=== PATIENT | male | born 1950 | race Caucasian/White ===

== ENCOUNTER → 2018-03-14 09:57 | Outpatient (REF) | payer MEDICARE, OTHER, SELFPAY ==
[2018-03-14 16:48] LABS: Basophils # 0.1 K/mm3 (0-0.2); Basophils % 1.1 % (0.1-2.0); Eosinophils # 0.4 K/mm3 (0.0-0.4); Hematocrit 42.1 % (42.0-52.0); Hemoglobin 13.1 g/dL (14.1-18.0); Lymphocytes # 2.2 K/mm3 (0.7-4.5); Lymphocytes % 27.7 K/mm3 (10-50); Mean Corpuscular HGB Conc 31.2 g/dL (31.8-35.4); Mean Corpuscular Hemoglobin 29.1 pg (27.0-31.2); Mean Corpuscular Volume 93.2 fl (80-94); Mean Platelet Volume 7.9 fl (7.4-10.4); Monocytes # 0.5 K/mm3 (0.1-1.0); Monocytes % 6.9 % (1.7-9.3); Neutrophils # 4.7 K/mm3 (1.8-7.8); Neutrophils % 59.3 % (37.0-80.0); Platelet Count 330 K/mm3 (142-424); Red Blood Count 4.52 M/mm3 (4.60-6.20); Red Cell Distribution Width 13.2 % (11.5-17.5); White Blood Count 7.9 K/mm3 (4.8-10.8)
[2018-03-14 17:55] LABS: Alanine Aminotransferase 19 U/L (12-78); Albumin/Globulin Ratio 1.2 (1.1-1.8); Alkaline Phosphatase 79 U/L (46-116); Anion Gap 13.4 mEq/L (5-15); Aspartate Amino Transferase 15 U/L (15-37); Bilirubin,Total 0.4 mg/dL (0.2-1.0); Blood Urea Nitrogen 27 mg/dL (7-18); Calcium 9.1 mg/dL (8.5-10.1); Carbon Dioxide 28 mmol/L (21.0-32.0); Chloride 105 mmol/L (98-107); Chol/HDL Ratio 4.9 (1-3.5); Cholesterol 197 mg/dL (140-200); Estimated Glomerular Filt Rate 33 ml/min (>60); GFR (African American) 40 ML/MIN (>60); Globulin 3.4 gm/dl (1.3-3.2); Glucose 107 mg/dL (74-106); HDL Cholesterol 40 mg/dL (27-67); LDL Cholesterol 112 mg/dL (0-130); Potassium 5.4 mmoL/L (3.5-5.1); Sodium 141 mmol/L (136-145); T4 (Thyroxine) 7.7 ug/dl (4.7-13.3); Thyroid Stimulating Hormone 5.33 uIU/ml (0.358-3.740); Total Protein,Serum 7.4 gm/dL (6.4-8.2); Triglycerides 227 mg/dL (30-200); VLDL Cholesterol 45 mg/dL (0-40)
[2018-03-14 18:32] LABS: Hemoglobin A1C 6.3 % (0.0-7.0)
[2018-03-17 11:59] LABS: Microalbumin, Urine 7.6 ug/mL (Not Estab.); Vitamin D 25 Hydroxy 29.6 ng/mL (30.0-100.0)
== END ==
LOC: LAB 09:57
PROVIDERS: Visit Provider Nurse Practitioner Family
DX: E11.9 Type 2 diabetes mellitus without complications (principal)
CPT/HCPCS: 80053; 80061; 82043; 82652; 83036; 84436; 84443; 85025

== ENCOUNTER → 2018-09-01 13:45 | Outpatient (CLI) | payer MEDICARE, BC, SELFPAY ==
[2018-09-01 14:59] LABS: Alanine Aminotransferase 16 U/L (12-78); Albumin Level 3.6 gm/dL (3.4-5.0); Albumin/Globulin Ratio 0.9 (1.1-1.8); Alkaline Phosphatase 92 U/L (46-116); Anion Gap 18.8 mEq/L (5-15); Aspartate Amino Transferase 13 U/L (15-37); Bilirubin,Total 0.4 mg/dL (0.2-1.0); Blood Urea Nitrogen 41 mg/dL (7-18); Calcium 8.8 mg/dL (8.5-10.1); Carbon Dioxide 22 mmol/L (21.0-32.0); Chloride 107 mmol/L (98-107); Chol/HDL Ratio 3.9 (1-3.5); Cholesterol 156 mg/dL (140-200); Creatinine,Serum 2.14 mg/dL (0.70-1.30); Estimated Glomerular Filt Rate 31 ml/min (>60); GFR (African American) 37 ML/MIN (>60); Glucose 126 mg/dL (74-106); HDL Cholesterol 40 mg/dL (27-67); LDL Cholesterol 103 mg/dL (0-130); Potassium 4.8 mmoL/L (3.5-5.1); Sodium 143 mmol/L (136-145); Thyroid Stimulating Hormone 2.26 uIU/ml (0.358-3.740); Total Protein,Serum 7.6 gm/dL (6.4-8.2); Triglycerides 67 mg/dL (30-200); VLDL Cholesterol 13 mg/dL (0-40)
[2018-09-03 04:12] LABS: Creatinine, Urine 85.5 mg/dL (Not Estab.); Microalbumin, Urine 7.6 ug/mL (Not Estab.)
== END ==
PROVIDERS: Visit Provider Nurse Practitioner Family
DX: E11.9 Type 2 diabetes mellitus without complications (principal); E03.9 Hypothyroidism, unspecified
CPT/HCPCS: 80053; 80061; 82043; 82570; 83036; 84443

== ENCOUNTER → 2018-09-15 15:04 | Outpatient (CLI) | payer MEDICARE, BC, SELFPAY ==
[2018-09-15 17:01] LABS: Anion Gap 14.6 mEq/L (5-15); Blood Urea Nitrogen 27 mg/dL (7-18); Calcium 8.4 mg/dL (8.5-10.1); Carbon Dioxide 26 mmol/L (21.0-32.0); Chloride 106 mmol/L (98-107); Creatinine,Serum 1.82 mg/dL (0.70-1.30); Estimated Glomerular Filt Rate 37 ml/min (>60); GFR (African American) 45 ML/MIN (>60); Glucose 125 mg/dL (74-106); Potassium 4.6 mmoL/L (3.5-5.1); Sodium 142 mmol/L (136-145)
== END ==
PROVIDERS: Visit Provider Nurse Practitioner Family
DX: R79.89 Other specified abnormal findings of blood chemistry (principal)
CPT/HCPCS: 36415; 80048

== ENCOUNTER → 2018-09-21 08:14 | Outpatient (CLI) | payer MEDICARE, BC, SELFPAY ==
--- NOTE | 2018-09-21 09:00 | US_ITS ---
US kidney retroperitoneal comp HISTORY: ITS.REASON: elevated creatinine ORDERING PHYSICIAN: Aurea Raygoza PATIENT AGE: 68 years Comparison: None FINDINGS: The right kidney measures 10 x 5 x 6 cm. There is some mild cortical thinning. No hydronephrosis. An 8 mm cyst is present along the lower pole laterally. The left kidney is 11 x 6 x 7 cm. No hydronephrosis. There is a small parapelvic cyst at 9 mm. There is mild cortical thinning. IMPRESSION: 1. No hydronephrosis. 2. Mild bilateral renal cortical thinning with small bilateral renal cysts
== END ==
PROVIDERS: PCP Nurse Practitioner Family; Visit Provider Nurse Practitioner Family
DX: R79.89 Other specified abnormal findings of blood chemistry (principal)
CPT/HCPCS: 76770

== ENCOUNTER → 2018-10-16 09:25 | Outpatient (POV) | payer MEDICARE, BC, SELFPAY | PROVIDERS: Visit Provider Nurse Practitioner Acute Care | DX: Z00.00 Encounter for general adult medical examination without abnormal findings (principal) ==

== ENCOUNTER → 2019-03-23 14:02 | Outpatient (CLI) | payer MEDICARE, BC, SELFPAY ==
[2019-03-23 14:25] LABS: Anion Gap 15.5 mEq/L (5-15); Blood Urea Nitrogen 60 mg/dL (7-18); Calcium 8.3 mg/dL (8.5-10.1); Carbon Dioxide 20 mmol/L (21.0-32.0); Chloride 110 mmol/L (98-107); Creatinine,Serum 2.88 mg/dL (0.70-1.30); Estimated Glomerular Filt Rate 22 ml/min (>60); GFR (African American) 26 ML/MIN (>60); Glucose 107 mg/dL (74-106); Potassium 4.5 mmoL/L (3.5-5.1); Sodium 141 mmol/L (136-145)
[2019-03-23 14:44] LABS: Basophils # 0.1 K/mm3 (0-0.2); Basophils % 0.3 % (0.1-2.0); Eosinophils # 0.4 K/mm3 (0.0-0.4); Hematocrit 30.9 % (42.0-52.0); Hemoglobin 9.6 g/dL (14.1-18.0); Lymphocytes # 2.6 K/mm3 (0.7-4.5); Lymphocytes % 18.6 % (10-50); Mean Corpuscular HGB Conc 30.9 g/dL (31.8-35.4); Mean Corpuscular Hemoglobin 28.4 pg (27.0-31.2); Mean Corpuscular Volume 91.9 fl (80-94); Mean Platelet Volume 7.5 fl (7.4-10.4); Monocytes # 1.1 K/mm3 (0.1-1.0); Monocytes % 7.4 % (1.7-9.3); Neutrophils % 70.7 % (37.0-80.0); Platelet Count 341 K/mm3 (142-424); Red Blood Count 3.36 M/mm3 (4.60-6.20); White Blood Count 14.2 K/mm3 (4.8-10.8)
== END ==
PROVIDERS: PCP Emergency Medicine; Visit Provider Emergency Medicine
DX: K52.9 Noninfective gastroenteritis and colitis, unspecified (principal)
CPT/HCPCS: 80048; 85025; 85060

== ENCOUNTER → 2019-04-13 10:24 | Outpatient (CLI) | payer MEDICARE, BC, SELFPAY ==
[2019-04-13 13:20] LABS: Anion Gap 14.5 mEq/L (5-15); Blood Urea Nitrogen 26 mg/dL (7-18); Calcium 8.3 mg/dL (8.5-10.1); Carbon Dioxide 25 mmol/L (21.0-32.0); Chloride 110 mmol/L (98-107); Creatinine,Serum 2.02 mg/dL (0.70-1.30); Estimated Glomerular Filt Rate 33 ml/min (>60); GFR (African American) 40 ML/MIN (>60); Glucose 100 mg/dL (74-106); Potassium 4.5 mmoL/L (3.5-5.1); Sodium 145 mmol/L (136-145)
== END ==
PROVIDERS: Visit Provider Emergency Medicine
DX: R79.89 Other specified abnormal findings of blood chemistry (principal)
CPT/HCPCS: 36415; 80048

== ENCOUNTER 2020-08-30 03:52 | Emergency (ER) | payer MEDICARE, BC, SELFPAY ==
--- NOTE | 2020-08-30 04:01 | PC.NURSE ---
md at bedside. no tests ordered at this time.
[2020-08-30 04:02] VITALS: BP 172/90; PULSE 82; RESP 14; TEMP 36.8; O2SAT 96; BMI 27.3
--- NOTE | 2020-08-30 04:04 | HMH.EDGENADL ---
ED Disposition Clinical Impression: Strain of neck muscle Disposition: Home, Self-Care Condition on Discharge: Good Instructions: DI for Neck Pain Prescriptions: Methocarbamol [Robaxin 500mg Tab*] 500 mg PO TID PRN 5 Days #15 tab PRN Reason: Muscle Spasm Transmission Status: Pending to [facility] #[id number] Referrals: Paul Light MD [Primary Care Provider] - - Critical Care Critical Care Time: No Attestation: On , the high probability of a clinically significant, sudden or life threatening deterioration of the following system(s) required my full and direct attention, intervention and personal management. The time I documented below is in addition to time spent performing reported procedures but includes the following listed in this critical care notation. Medical Decision Making - Medical Records Medical records reviewed: Yes: I reviewed the patient's medical records. - Elian Inquiry Pt receiving controlled substance: No Orders (Tests/Meds): ED MEDICATIONS Generic Name Dose Route Start Last Admin Trade Name Freq PRN Reason Stop Dose Admin Methocarbamol 500 mg 08/30/20 09:00 Methocarbamol 500mg Tablet PO 09/29/20 08:59 BID [facility], [facility] Medical Decision Narrative: 70-year-old male presents with acute on chronic neck pain, denies trauma, no risk for infection. Giving robaxin per request. neurological exam normal. Plan to give muscle relaxer discharged home with return precautions and prescription for muscle relaxer per request and recommendation for follow-up with primary care physician General Adult HPI - General Chief complaint: Neck Pain/Injury Stated complaint: neck pain Time Seen by Provider: 08/30/20 04:00 Source of Information: Patient - History of Present Illness HPI narrative: 70-year-old male presents with chronic neck pain. He says he is having difficulty turning his head to the left and was having difficulty sleeping at night due to pain. He said he had similar pain last year and was given a muscle relaxer and it felt much better. Denies recent trauma, numbness weakness or tingling in arms or legs fever chills or any other concerns for trauma or infection Onset (ago): minute(s) Location: left Radiation: non-radiation Severity: mild Severity scale (1-10): 5 Quality: dull, constant Consistency: constant Exacerbating factors: movement - Related Data Home Medications Medication Instructions Recorded Confirmed Aspirin [Low Dose Aspirin EC] 81 mg PO DAILY 03/22/19 04/18/19 Blood Sugar Diagnostic [Blood 0 kit .ROUTE .MEDSUPPLY 03/22/19 04/18/19 Glucose Test] Blood-Glucose Meter [Contour Link] 0 kit .ROUTE .MEDSUPPLY 03/22/19 04/18/19 Ergocalciferol (Vitamin D2) 50,000 unit PO QWEEK 03/22/19 04/18/19 [Drisdol] Pantoprazole Sodium [Protonix 40mg 40 mg PO DAILY 03/22/19 04/18/19 tablet] furosemide 20 mg tablet 20 mg PO DAILY 03/22/19 04/18/19 lisinopril 2.5 mg tablet 2.5 mg PO DAILY 03/22/19 04/18/19 metformin 500 mg tablet 500 mg PO BID 03/22/19 04/18/19 Previous Rx's Medication Instructions Recorded sitagliptin 100 mg tablet 100 mg PO QDAY #90 tab 05/02/19 amlodipine 10 mg tablet 10 mg PO DAILY #90 tab 08/14/19 methocarbamoL [Methocarbamol 500mg 500 mg PO BID PRN #10 tab 09/18/19 Tablet] levothyroxine 25 mcg tablet 25 mcg PO DAILY #90 tab 08/24/20 lovastatin 10 mg tablet 10 mg PO DAILY #90 tab 08/24/20 Methocarbamol [Robaxin 500mg Tab*] 500 mg PO TID PRN 5 Days #15 tab 08/30/20 Allergies Allergy/AdvReac Type Severity Reaction Status Date / Time No Known Allergies Allergy Verified 09/18/19 20:35 [facility] History - Hepatitis A Screen Attestation statement:: This patient has been screened for Hepatitis A risk factors. Medical History: Reports:: Diabetes Mellitus Type 2, Hypertension Comment: cologuard was ordered Other Surgeries: Yes: Hernia Repair, Other Amputation: No Fractures: No Comment: Belly Button rupture repai
[2020-08-30 04:15] VITALS: BP 166/75; PULSE 76; RESP 15; TEMP 36.8; O2SAT 98
== END 2020-08-30 04:18 | disposition home or self-care (01) ==
PROVIDERS: Emergency Provider Emergency Medicine; PCP Emergency Medicine
DX: S16.1XXA Strain of muscle, fascia and tendon at neck level, initial encounter (principal); E11.9 Type 2 diabetes mellitus without complications; I10 Essential (primary) hypertension; Z79.899 Other long term (current) drug therapy
CPT/HCPCS: 99281

== ENCOUNTER 2022-01-28 18:42 | Emergency (ER) | payer MEDICARE, BC, SELFPAY ==
[2022-01-28 19:00] VITALS: BP 150/89; PULSE 91; RESP 19; TEMP 36.8; O2SAT 98; BMI 26.4
--- NOTE | 2022-01-28 19:15 | HMH.EDUTC ---
[facility] [place] Disposition Clinical Impression: Gout attack Qualifiers: Gout site: hand Gout etiology: unspecified cause Laterality: right Qualified Code(s): M10.9 - Gout, unspecified Disposition: Home, Self-Care Condition on Discharge: Good Instructions: Gout, DI for Gout Additional Instructions: Take medication as prescribed Follow up with your Family Doctor if no improvement or any worsening of symptoms Return if needed Straight to ER if any life threatening symptoms Prescriptions: methylPREDNISolone [Medrol 4mg tab] 4 mg PO DIRECTED #21 tab Transmission Status: Received by [facility] # Naproxen [Naproxen 500mg tab] 500 mg PO BID 5 Days #10 tab Transmission Status: Received by [facility] # Referrals: Paul Light MD [Primary Care Provider] - As needed Time of Disposition: 20:03 Medical Decision Making - Elian Inquiry Pt receiving controlled substance: No Elian was queried for this patient: No Vital Signs: 01/28/22 19:00 01/28/22 20:13 Temperature 98.2 F 98.2 F Temperature Source Oral Pulse Rate 91 H Pulse Rate [Right Brachial] 91 H Respiratory Rate 19 19 Blood Pressure 150/89 H Blood Pressure [Right Arm] 150/89 H Blood Pressure Mean [Right Arm] 109 Blood Pressure Source [Right Arm] Automatic Cuff Blood Pressure Position [Right Arm] Sitting 02 Sat by Pulse Oximetry 98 Oxygen Delivery Method Room Air - Lab Data Lab Results 01/28/22 19:00: Uric Acid 8.7 H Orders (Tests/Meds): ED MEDICATIONS Discontinued Medications Generic Name Dose Route Start Last Admin Trade Name Alejo PRN Reason Stop Dose Admin Ketorolac Tromethamine 30 mg 01/28/22 19:58 01/28/22 20:10 Ketorolac 60mg/2ml Vial IM 01/28/22 19:59 30 mg ONCE ONE Administration Methylprednisolone Sodium Succinate 125 mg 01/28/22 19:58 01/28/22 20:10 Methylprednisolone Sod Succ 125mg Vial IM 01/28/22 19:59 125 mg ONCE ONE Administration Medical Decision Narrative: Patient state that he no longer takes asprin daily and has been told he can take ibuprofen but hasnt taken anything today Medication discussed with pharmacy [facility] [place] HPI - General Stated complaint: R Alexander swollen (no accident Time Seen by Provider: 01/28/22 19:16 Mode of Arrival: Ambulatory Source of Information: Patient Limitations: No Limitations Description of Symptoms (Recalled from Triage Doc. by RN): PATIENT C/O RIGHT HAND SWELLING SINCE Tuesday HEENT Symptoms (Recalled from RN notes): No Resp Symptoms (Recalled from RN notes): No Skin Symptoms (Recalled from RN notes): No MS Symptoms (Recalled from RN notes): Yes Functional Status (Recalled from RN notes): WNL - History of Present Illness Provider Complaint: Patient states that he woke up Tuesday with his right hand red and swollen State that it feels like it did when he had gout States that he has not done anything to hurt it that he is aware of so tonight when it was still hurting and swollen - Related Data Home Medications Medication Instructions Recorded Confirmed Aspirin [Low Dose Aspirin EC] 81 mg PO DAILY 03/22/19 04/18/19 Blood-Glucose Meter [Contour Link] 0 kit .ROUTE .MEDSUPPLY 03/22/19 04/18/19 Ergocalciferol (Vitamin D2) 50,000 unit PO QWEEK 03/22/19 04/18/19 [Drisdol] Pantoprazole Sodium [Protonix 40mg 40 mg PO DAILY 03/22/19 04/18/19 tablet] furosemide 20 mg tablet 20 mg PO DAILY 03/22/19 04/18/19 lisinopril 2.5 mg tablet 2.5 mg PO DAILY 03/22/19 04/18/19 metformin 500 mg tablet 500 mg PO BID 03/22/19 04/18/19 Previous Rx's Medication Instructions Recorded sitagliptin 100 mg tablet 100 mg PO QDAY #90 tab 05/02/19 methocarbamoL [Methocarbamol 500mg 500 mg PO BID PRN #10 tab 09/18/19 Tablet] Methocarbamol [Robaxin 500mg Tab*] 500 mg PO TID PRN 5 Days #15 tab 08/30/20 blood sugar diagnostic 1 strip MISCELLANE BID #100 each 10/31/20 levothyroxine 25 mcg tablet 25 mcg PO DAILY #90 tab
[2022-01-28 19:23] LABS: Uric Acid 8.7 mg/dl (3.5-8.5)
[2022-01-28 20:13] VITALS: BP 150/89; PULSE 91; RESP 19; TEMP 36.8; O2SAT 98
== END 2022-01-28 20:21 | disposition home or self-care (01) ==
PROVIDERS: Emergency Provider Nurse Practitioner; PCP Emergency Medicine
DX: M10.9 Gout, unspecified (principal)
CPT/HCPCS: 84550; 96372; 99212; G0463

== ENCOUNTER → 2022-02-03 14:09 | Outpatient (CLI) | payer MEDICARE, BC, SELFPAY | PROVIDERS: PCP Nurse Practitioner Family; Visit Provider Nurse Practitioner Family | DX: E07.9 Disorder of thyroid, unspecified (principal); E11.9 Type 2 diabetes mellitus without complications; E78.5 Hyperlipidemia, unspecified; I10 Essential (primary) hypertension; Z79.84 Long term (current) use of oral hypoglycemic drugs | CPT/HCPCS: 82043 ==

== ENCOUNTER → 2022-02-05 15:12 | Outpatient (CLI) | payer MEDICARE, BC, SELFPAY ==
[2022-02-05 16:37] LABS: Basophils # 0.2 K/mm3 (0-0.2); Basophils % 1.4 % (0.1-2.0); Eosinophils # 0.4 K/mm3 (0.0-0.4); Hematocrit 42.4 % (42.0-52.0); Hemoglobin 14.2 g/dL (14.1-18.0); Lymphocytes # 2.4 K/mm3 (0.7-4.5); Lymphocytes % 17.4 % (10-50); Mean Corpuscular HGB Conc 33.4 g/dL (31.8-35.4); Mean Corpuscular Hemoglobin 31.2 pg (27.0-31.2); Mean Corpuscular Volume 93.3 fl (80-94); Mean Platelet Volume 7.7 fl (7.4-10.4); Monocytes # 0.8 K/mm3 (0.1-1.0); Neutrophils # 9.8 K/mm3 (1.8-7.8); Neutrophils % 72.3 % (37.0-80.0); Platelet Count 335 K/mm3 (142-424); Red Blood Count 4.55 M/mm3 (4.60-6.20); Red Cell Distribution Width 13.9 % (11.5-17.5); White Blood Count 13.6 K/mm3 (4.8-10.8)
[2022-02-05 16:50] LABS: Alanine Aminotransferase 29 U/L (12-78); Albumin Level 3.6 g/dl (3.5-5.0); Albumin/Globulin Ratio 1.3 (1.1-1.8); Alkaline Phosphatase 103 U/L (38-126); Anion Gap 13.2 mEq/L (5-15); Aspartate Amino Transferase 33 U/L (17-59); Bilirubin,Total 0.2 mg/dl (0.2-1.3); Blood Urea Nitrogen 33 mg/dl (9-20); Carbon Dioxide 23 mmol/L (22.0-30.0); Chloride 107 mmol/L (98-107); Chol/HDL Ratio 4.4 (1-3.5); Cholesterol 159 mg/dl (140-200); Estimated Glomerular Filt Rate 46 ml/min (>60); GFR (African American) 56 ML/MIN (>60); Globulin 2.7 g/dL (1.3-3.2); Glucose 193 mg/dl (74-100); HDL Cholesterol 36 mg/dl (40-60); Potassium 4.2 mmoL/L (3.5-5.1); Sodium 139 mmol/L (136-145); Total Protein,Serum 6.3 g/dl (6.3-8.2); Triglycerides 321 mg/dl (30-150); VLDL Cholesterol 64 mg/dL (0-40)
[2022-02-05 17:01] LABS: Direct LDL Cholesterol 63.66 mg/dL (100-129)
[2022-02-05 17:04] LABS: Free T4 (Free Thyroxine) 1.06 ng/dl (0.78-2.19)
[2022-02-05 17:05] LABS: 25-OH Vitamin D, Total 34.7 ng/mL (30-100)
[2022-02-05 17:08] LABS: Hemoglobin A1C 6.3 % (4.0-6.0)
[2022-02-05 17:20] LABS: Thyroid Stimulating Hormone 2.36 uIU/mL (0.465-4.68)
== END ==
PROVIDERS: PCP Emergency Medicine; Visit Provider Family Medicine
DX: E11.9 Type 2 diabetes mellitus without complications (principal); R10.9 Unspecified abdominal pain; E55.9 Vitamin D deficiency, unspecified; Z79.84 Long term (current) use of oral hypoglycemic drugs
CPT/HCPCS: 36415; 80053; 80061; 82306; 83036; 84439; 84443; 85025

== ENCOUNTER 2022-02-14 19:50 | Emergency (ER) | payer MEDICARE, BC, SELFPAY ==
[2022-02-14 20:08] VITALS: BP 153/70; PULSE 81; RESP 18; TEMP 37.4; O2SAT 96; BMI 27.3
--- NOTE | 2022-02-14 20:12 | HMH.EDUTC ---
[facility] [place] Disposition Clinical Impression: Right hand pain, History of gout Disposition: Home, Self-Care Condition on Discharge: Good Instructions: Gout, DI for Gout, DI for Hand Pain Additional Instructions: Rest the extremity, Elevate the extremity as tolerated while you are resting. Take the steroids as directed for you hand pain. Don't start the oral steroids (medrol dose pack) until tomorrow. Follow up with your regular doctor. You may need to medication to treat gout in a more terminal superintendent way, but, since you may have a little decreased kidney function, you should see your doctor to discuss this. GO TO THE ER FOR ANY WORSENING SYMPTOMS Prescriptions: methylPREDNISolone [Medrol] 4 mg PO DIRECTED 6 Days #21 packet Transmission Status: Received by [facility] #[id number] Referrals: Paul Light MD [Primary Care Provider] - Time of Disposition: 20:45 Medical Decision Making - Medical Records Medical records reviewed: No: I reviewed the patient's medical records. - Elian Inquiry Pt receiving controlled substance: No Vital Signs: 02/14/22 20:08 02/14/22 20:47 Temperature 99.3 F 99.3 F Temperature Source Oral Pulse Rate 81 Pulse Rate [Left Radial] 81 Respiratory Rate 18 18 Blood Pressure 153/70 H Blood Pressure [Right Arm] 153/70 H Blood Pressure Mean [Right Arm] 97 02 Sat by Pulse Oximetry 96 Orders (Tests/Meds): ED MEDICATIONS Discontinued Medications Generic Name Dose Route Start Last Admin Trade Name Cedricq PRN Reason Stop Dose Admin Methylprednisolone Sodium Succinate 125 mg 02/14/22 20:24 02/14/22 20:38 Methylprednisolone Sod Succ 125mg Vial IM 02/14/22 20:25 125 mg ONCE ONE Administration [facility] [place] HPI - General Stated complaint: pain R hand Time Seen by Provider: 02/14/22 20:12 Description of Symptoms (Recalled from Triage Doc. by RN): patient comes in with complaints of right hand gout flare up. HEENT Symptoms (Recalled from RN notes): No Resp Symptoms (Recalled from RN notes): No Skin Symptoms (Recalled from RN notes): No MS Symptoms (Recalled from RN notes): Yes Functional Status (Recalled from RN notes): wnl - History of Present Illness Provider Complaint: He is here with complaints of right hand pain with no injury. He has a history of gout that has caused pain like this in the same place in the past. - Related Data Home Medications Medication Instructions Recorded Confirmed Aspirin [Low Dose Aspirin EC] 81 mg PO DAILY 03/22/19 02/03/22 Ergocalciferol (Vitamin D2) 50,000 unit PO QWEEK 03/22/19 02/03/22 [Drisdol] Pantoprazole Sodium [Protonix 40mg 40 mg PO DAILY 03/22/19 02/03/22 tablet] furosemide 20 mg tablet 20 mg PO DAILY 03/22/19 02/03/22 lisinopril 2.5 mg tablet 2.5 mg PO DAILY 03/22/19 02/03/22 metformin 500 mg tablet 500 mg PO BID 03/22/19 02/03/22 Previous Rx's Medication Instructions Recorded sitagliptin 100 mg tablet 100 mg PO QDAY #90 tab 05/02/19 methocarbamoL [Methocarbamol 500mg 500 mg PO BID PRN #10 tab 09/18/19 Tablet] Methocarbamol [Robaxin 500mg Tab*] 500 mg PO TID PRN 5 Days #15 tab 08/30/20 levothyroxine 25 mcg tablet 25 mcg PO DAILY #90 tab 08/19/21 lovastatin 10 mg tablet 10 mg PO DAILY #30 tab 01/20/22 amlodipine 10 mg tablet See Rx Instructions .ROUTE 01/27/22 .COMPLEX #90 tab Naproxen [Naproxen 500mg tab] 500 mg PO BID 5 Days #10 tab 01/28/22 methylPREDNISolone [Medrol 4mg 4 mg PO DIRECTED #21 tab 01/28/22 tab] blood sugar diagnostic 1 strip MISCELLANE BID #100 each 02/05/22 blood-glucose meter 0 kit .ROUTE .MEDSUPPLY #1 each 02/05/22 lancets 30 gauge See Rx Instructions [facility] .MEDSUPPLY 02/05/22 #200 each methylPREDNISolone [Medrol] 4 mg PO DIRECTED 6 Days #21 02/14/22 packet Allergies Allergy/AdvReac Type Severity Reaction Status Date / Time No Known Allergies Allergy Verified 02/03/22 08:10 - Worker's Comp Is this a Worker's Comp case?: No H
[2022-02-14 20:47] VITALS: BP 153/70; PULSE 81; RESP 18; TEMP 37.4
== END 2022-02-14 20:52 | disposition home or self-care (01) ==
PROVIDERS: Emergency Provider Nurse Practitioner Family; PCP Emergency Medicine
DX: M79.641 Pain in right hand (principal); E11.9 Type 2 diabetes mellitus without complications; Z79.84 Long term (current) use of oral hypoglycemic drugs; I10 Essential (primary) hypertension
CPT/HCPCS: 96372; 99212; G0463

== ENCOUNTER 2022-03-17 17:32 | Emergency (ER) | payer MEDICARE, BC, SELFPAY ==
[2022-03-17 17:34] VITALS: BP 143/83; PULSE 72; RESP 18; TEMP 36.8; O2SAT 98; BMI 27.3
--- NOTE | 2022-03-17 18:02 | PC.NURSE ---
ED MD AT BEDSIDE TO TREAT PT FOR EYE ISSUE
--- NOTE | 2022-03-17 18:46 | HMH.EDEYEP ---
ED Disposition Clinical Impression: Corneal abrasion Qualifiers: Encounter type: initial encounter Laterality: right Qualified Code(s): S05.01XA - Injury of conjunctiva and corneal abrasion without foreign body, right eye, initial encounter Pterygium eye Qualifiers: Laterality: right Qualified Code(s): H11.001 - Unspecified pterygium of right eye Disposition: Home, Self-Care Condition on Discharge: Good Instructions: DI for Eye Pain Referrals: Paul Light MD [Primary Care Provider] - - Critical Care Critical Care Time: No Attestation: On 03/17/22, the high probability of a clinically significant, sudden or life threatening deterioration of the following system(s) required my full and direct attention, intervention and personal management. The time I documented below is in addition to time spent performing reported procedures but includes the following listed in this critical care notation. Medical Decision Making - Medical Records Medical records reviewed: Yes: I reviewed the patient's medical records. - Elian Inquiry Pt receiving controlled substance: No Vital Signs: 03/17/22 17:34 Temperature 98.3 F Temperature Source Oral Pulse Rate [Left Radial] 72 Respiratory Rate 18 Blood Pressure [Right Arm] 143/83 H Blood Pressure Mean [Right Arm] 103 Blood Pressure Source [Right Arm] Automatic Cuff Blood Pressure Position [Right Arm] Sitting 02 Sat by Pulse Oximetry 98 Oxygen Delivery Method Room Air Orders (Tests/Meds): ED MEDICATIONS Discontinued Medications Generic Name Dose Route Start Last Admin Trade Name Freq PRN Reason Stop Dose Admin Erythromycin 0.5 gm 03/17/22 18:40 03/17/22 18:45 Erythromycin Base 1 Gm Oint...G. OP 03/17/22 18:41 0.5 gm ONCE ONE Administration Fluorescein Sodium 1 mg 03/17/22 18:40 03/17/22 18:46 Fluorescein Sodium 1mg Strip OP 03/17/22 18:41 1 mg ONCE ONE Administration Tetracaine HCl 1 ml 03/17/22 18:40 03/17/22 18:46 Tetracaine 0.5% Opth Tamera 15ml OP 03/17/22 18:41 0.5 ml ONCE ONE Administration Medical Decision Narrative: 71-year-old male presented to the emergency department with some right pain. We did observe under direct visualization and fluorescein. Patient with small corneal abrasion as well as pterygiums. Patient was placed on antibiotic ointment. Needs to follow-up with ophthalmology in 24 hours. Given strict return precautions. Verbalized understanding. Eye Problem HPI - General Chief complaint: Eye Problems Stated complaint: AO/@1700 Left eye injury Time Seen by Provider: 03/17/22 17:40 Mode of Arrival: Ambulatory Limitations: No Limitations Description of Symptoms (Recalled from ER Triage Doc. by RN): c/o right eye pain after something going in it while weeding prior to arrival - History of Present Illness HPI Narrative: 71-year-old male presented with some right eye pain after something got into it while he was weed eating. Patient states that some grass flew up and hit him in the eye. Had some instant pain in his right eye. Is not having difficulty seeing just complaining of pain. Worse with light. Fell excellently was stuck in there. Tetanus is up-to-date. Denies any other injuries. No headache or focal weakness. Fevers or chills no chest pain or shortness of breath. No abdominal pain or vomiting. - Related Data Home Medications Medication Instructions Recorded Confirmed Aspirin [Low Dose Aspirin EC] 81 mg PO DAILY 03/22/19 02/03/22 Ergocalciferol (Vitamin D2) 50,000 unit PO QWEEK 03/22/19 02/03/22 [Drisdol] Pantoprazole Sodium [Protonix 40mg 40 mg PO DAILY 03/22/19 02/03/22 tablet] furosemide 20 mg tablet 20 mg PO DAILY 03/22/19 02/03/22 lisinopril 2.5 mg tablet 2.5 mg PO DAILY 03/22/19 02/03/22 metformin 500 mg tablet 500 mg PO BID 03/22/19 02/03/22 Previous Rx's Medication Instructions Recorded sitagliptin 100 mg tablet 100 mg PO QDAY #90 tab 05/02/19 me
[2022-03-17 18:55] VITALS: BP 135/71; PULSE 72; RESP 18; TEMP 36.7; O2SAT 96
== END 2022-03-17 18:59 | disposition home or self-care (01) ==
PROVIDERS: Emergency Provider Emergency Medicine; PCP Emergency Medicine
DX: S05.01XA Injury of conjunctiva and corneal abrasion without foreign body, right eye, initial encounter (principal); H11.001 Unspecified pterygium of right eye; Y93.H2 Activity, gardening and landscaping; Z79.82 Long term (current) use of aspirin; Z79.899 Other long term (current) drug therapy; Z79.84 Long term (current) use of oral hypoglycemic drugs; E11.9 Type 2 diabetes mellitus without complications; I10 Essential (primary) hypertension

== ENCOUNTER 2022-03-17 20:45 | Emergency (ER) | payer MEDICARE, BC, SELFPAY ==
[2022-03-17 20:46] VITALS: BP 146/77; PULSE 69; RESP 18; TEMP 37.1; O2SAT 98; BMI 27.3
[2022-03-17 21:30] VITALS: BP 119/44; PULSE 64; O2SAT 98
[2022-03-17 22:30] VITALS: BP 128/55; PULSE 64; O2SAT 98
--- NOTE | 2022-03-17 23:05 | PC.NURSE ---
Pt moved to room 2 so eye exam could be performed
--- NOTE | 2022-03-17 23:49 | PC.NURSE ---
at performing eye exam
--- NOTE | 2022-03-17 23:55 | HMH.EDEYEP ---
ED Disposition Clinical Impression: Corneal abrasion Qualifiers: Encounter type: subsequent encounter Laterality: right Qualified Code(s): S05.01XD - Injury of conjunctiva and corneal abrasion without foreign body, right eye, subsequent encounter Disposition: Home, Self-Care Condition on Discharge: Good Instructions: DI for Corneal Abrasion Additional Instructions: see eye center this am Referrals: Paul Light MD [Primary Care Provider] - - Critical Care Critical Care Time: No Attestation: On 03/17/22, the high probability of a clinically significant, sudden or life threatening deterioration of the following system(s) required my full and direct attention, intervention and personal management. The time I documented below is in addition to time spent performing reported procedures but includes the following listed in this critical care notation. Medical Decision Making - Medical Records Medical records reviewed: Yes: I reviewed the patient's medical records. - Elian Inquiry Pt receiving controlled substance: No Vital Signs: 03/17/22 20:46 03/17/22 21:30 03/17/22 22:30 Temperature 98.7 F Temperature Source Oral Pulse Rate 64 64 Pulse Rate [Right] 69 Respiratory Rate 18 Blood Pressure 119/44 L 128/55 L Blood Pressure [Right Arm] 146/77 H Blood Pressure Mean [Right Arm] 100 02 Sat by Pulse Oximetry 98 98 98 Oxygen Delivery Method Room Air Room Air Orders (Tests/Meds): ED MEDICATIONS Discontinued Medications Generic Name Dose Route Start Last Admin Trade Name Freq PRN Reason Stop Dose Admin Tetanus/Diphtheria Toxoids 0.5 ml 03/17/22 23:55 03/18/22 00:24 Tetanus-Diphth Toxoid, Adult 0.5ml Syr IM 03/17/22 23:56 0.5 ml .ONCE ONE Administration - CT Data CT Scan: Other (orbit) Time Received: 01:[address] Reviewed: Yes: I have viewed the radiologist's interpretation Preliminary Findings: No Fracture Seen (no fb ) Medical Decision Narrative: see eye center this am Eye Problem HPI - General Chief complaint: Eye Problems Stated complaint: left eye inj Time Seen by Provider: 03/17/22 23:55 Mode of Arrival: Ambulatory Source of Information: Patient, Relative, Medical Record Limitations: No Limitations Description of Symptoms (Recalled from ER Triage Doc. by RN): pt c/o lt eye pain after weedeating and something flew up and hit eye. pt was seen in er for same problem today. - History of Present Illness HPI Narrative: persistent rt eye pain - seen in ed with abrasion - MD chief complaint: eye pain Onset (ago): hour(s) Location: right eye Eye Symptoms: foreign body sensation, photophobia Place: home Mechanism: direct trauma Severity: moderate Treatments Prior to Arrival: other (ontiment ) - Related Data Patient tetanus UTD: No Home Medications Medication Instructions Recorded Confirmed Aspirin [Low Dose Aspirin EC] 81 mg PO DAILY 03/22/19 02/03/22 Ergocalciferol (Vitamin D2) 50,000 unit PO QWEEK 03/22/19 02/03/22 [Drisdol] Pantoprazole Sodium [Protonix 40mg 40 mg PO DAILY 03/22/19 02/03/22 tablet] furosemide 20 mg tablet 20 mg PO DAILY 03/22/19 02/03/22 lisinopril 2.5 mg tablet 2.5 mg PO DAILY 03/22/19 02/03/22 metformin 500 mg tablet 500 mg PO BID 03/22/19 02/03/22 Previous Rx's Medication Instructions Recorded sitagliptin 100 mg tablet 100 mg PO QDAY #90 tab 05/02/19 methocarbamoL [Methocarbamol 500mg 500 mg PO BID PRN #10 tab 09/18/19 Tablet] Methocarbamol [Robaxin 500mg Tab*] 500 mg PO TID PRN 5 Days #15 tab 08/30/20 levothyroxine 25 mcg tablet 25 mcg PO DAILY #90 tab 08/19/21 amlodipine 10 mg tablet See Rx Instructions .ROUTE 01/27/22 .COMPLEX #90 tab Naproxen [Naproxen 500mg tab] 500 mg PO BID 5 Days #10 tab 01/28/22 methylPREDNISolone [Medrol 4mg 4 mg PO DIRECTED #21 tab 01/28/22 tab] blood sugar diagnostic 1 strip MISCELLANE BID #100 each 02/05/22 blood-glucose meter 0 kit .ROUTE .MEDSUPPLY #1 ea
--- NOTE | 2022-03-18 | CT_ITS ---
PROCEDURE INFORMATION: Exam: CT Orbits Without Contrast Exam date and time: 03/17/2022 11:59 PM Age: 71 years old Clinical indication: Injury or trauma; Other: Object hit eye; Injury details: [place] object hit right eye while weedeating, pain in right eye with redness; Additional info: F/o TECHNIQUE: Imaging protocol: Computed tomography of the orbits without contrast. Radiation optimization: All CT scans at this facility use at least one of these dose optimization techniques: automated exposure control; mA and/or kV adjustment per patient size (includes targeted exams where dose is matched to clinical indication); or iterative reconstruction. COMPARISON: No relevant prior studies available. FINDINGS: Paranasal sinuses: Normal. No air-fluid levels. Orbital cavities: No evidence of intra orbital foreign body. No evidence edema or soft tissue gas. Dental: Impacted right maxillary molar. Bones/joints: No acute fracture. Soft tissues: No significant facial soft tissue swelling. IMPRESSION: Normal appearance of the orbits. No evidence of foreign body, fracture, or visible soft tissue injury.
--- NOTE | 2022-03-18 00:36 | PC.NURSE ---
Patient is currently sitting on the side of his bed. Patient was given tetanus injection. Pt tolerated injection well. Is alert oriented and stable.
[2022-03-18 01:21] VITALS: BP 128/55; PULSE 64; RESP 18; TEMP 36.8; O2SAT 98
== END 2022-03-18 01:23 | disposition home or self-care (01) ==
PROVIDERS: Emergency Provider Emergency Medicine; PCP Emergency Medicine
DX: S05.01XD Injury of conjunctiva and corneal abrasion without foreign body, right eye, subsequent encounter (principal); Y93.H2 Activity, gardening and landscaping; Z79.82 Long term (current) use of aspirin; Z79.899 Other long term (current) drug therapy; Z23 Encounter for immunization; Z79.84 Long term (current) use of oral hypoglycemic drugs; E11.9 Type 2 diabetes mellitus without complications; I10 Essential (primary) hypertension
CPT/HCPCS: 70480; 90714; 99283; 99284

== ENCOUNTER → 2022-04-26 07:23 | Outpatient (CLI) | payer MEDICARE, BC, SELFPAY ==
[2022-04-26 07:30] LABS: Microscopic, Urine URINE MICROSCOPIC (MICROSCOPIC)
[2022-04-26 07:42] LABS: Appearance,Urine CLEAR (Clear); Basophils # 0.1 K/mm3 (0-0.2); Basophils % 1.8 % (0.1-2.0); Bilirubin,Urine Negative (Negative); Blood, Urine Negative (Negative); Color,Urine YELLOW (Yellow); Eosinophils # 0.4 K/mm3 (0.0-0.4); Eosinophils % 5.2 % (0.1-12.0); Glucose,Urine (UA) Negative (Negative); Hematocrit 43.5 % (42.0-52.0); Hemoglobin 13.3 g/dL (14.1-18.0); Ketones,Urine Negative (Negative); Leukocyte Esterase,Urine Negative (Negative); Lymphocytes # 3.2 K/mm3 (0.7-4.5); Lymphocytes % 40.4 % (10-50); Mean Corpuscular HGB Conc 30.6 g/dL (31.8-35.4); Mean Corpuscular Hemoglobin 29.2 pg (27.0-31.2); Mean Corpuscular Volume 95.5 fl (80-94); Mean Platelet Volume 7.4 fl (7.4-10.4); Monocytes # 0.5 K/mm3 (0.1-1.0); Monocytes % 6.7 % (1.7-9.3); Neutrophils # 3.6 K/mm3 (1.8-7.8); Neutrophils % 45.9 % (37.0-80.0); Nitrate,Urine Negative (Negative); Platelet Count 338 K/mm3 (142-424); Protein,Urine Negative (Negative); Red Blood Count 4.56 M/mm3 (4.60-6.20); Red Cell Distribution Width 13.6 % (11.5-17.5); Urobilinogen,Urine 0.2 EU/dl (0.2); White Blood Count 7.8 K/mm3 (4.8-10.8)
[2022-04-26 07:54] LABS: Bacteria,Urine Trace /lpf; RBC,Urine Occasional #/hpf (0-3); Squamous Epithelial Cell,Urine Occasional #/hpf (0-5); WBC,Urine Occasional #/hpf (0-3)
[2022-04-26 08:06] LABS: Creatinine,Urine Random 81 mg/dL (Not Estab.); Microalbumin/Creatinine Ratio 52.5
[2022-04-26 08:32] LABS: Albumin Level 4.2 g/dl (3.5-5.0); Anion Gap 13.7 mEq/L (5-15); Blood Urea Nitrogen 20 mg/dl (9-20); Calcium 8.9 mg/dl (8.4-10.2); Carbon Dioxide 23 mmol/L (22.0-30.0); Chloride 109 mmol/L (98-107); Estimated Glomerular Filt Rate 46 ml/min (>60); GFR (African American) 56 ML/MIN (>60); Glucose 119 mg/dl (74-100); Phosphorous 3.6 mg/dl (2.5-4.5); Potassium 4.7 mmoL/L (3.5-5.1); Sodium 141 mmol/L (136-145)
[2022-04-26 08:44] LABS: Intact Parathyroid Hormone 217.1 pg/mL (7.5-53.5)
[2022-04-26 08:48] LABS: 25-OH Vitamin D, Total 54.2 ng/mL (30-100)
== END ==
PROVIDERS: PCP Emergency Medicine; Visit Provider Internal Medicine Nephrology
DX: N18.31 Chronic kidney disease, stage 3a (principal); E55.9 Vitamin D deficiency, unspecified; R80.9 Proteinuria, unspecified
CPT/HCPCS: 36415; 80069; 81001; 82043; 82306; 82570; 83970; 84155; 85025

== ENCOUNTER → 2022-04-29 13:31 | Outpatient (POV) | payer MEDICARE, BC, SELFPAY | PROVIDERS: Visit Provider Internal Medicine Nephrology | DX: Z00.00 Encounter for general adult medical examination without abnormal findings (principal) ==

== ENCOUNTER 2022-10-18 08:42 | Emergency (ER) | payer MEDICARE, BC, SELFPAY ==
[2022-10-18 08:45] VITALS: BP 144/83; PULSE 81; RESP 20; TEMP 36.9; O2SAT 97; BMI 28.1
[2022-10-18 09:05] LABS: UTC Strep Screen (Rapid) Negative (Negative)
--- NOTE | 2022-10-18 09:07 | EXP.UTC ---
Discharge Plan Disposition Patient Disposition: Home, Self-Care Condition: Good Prescriptions Prescriptions: New benzonatate [benzonatate] 100 mg capsule 100 mg PO TIDP PRN (Reason: Cough) Qty: 30 0RF methylprednisolone 4 mg Tablets,Dose Pack 4 mg PO DIRECTED Qty: 21 0RF amoxicillin-pot clavulanate 875-125 mg Tablet 1 tab PO Q12H Qty: 20 0RF No Action Januvia 100 mg tablet 100 mg PO QDAY Qty: 90 0RF amlodipine 10 mg tablet See Rx Instructions .ROUTE .COMPLEX Qty: 90 3RF Dose Instruction: TAKE 1 TABLET BY MOUTH DAILY FOR BLOOD PRESSURE Rx Instructions: TAKE 1 TABLET BY MOUTH DAILY FOR BLOOD PRESSURE (DME) blood sugar diagnostic Strip 1 strip MISCELLANE BID Qty: 100 4RF Rx Instructions: 1 strip miscellaneous (DME) blood-glucose meter Kit 0 kit .Route .MEDSUPPLY Qty: 1 0RF Rx Instructions: As directed (DME) lancets [Droplet Lancets] 30 gauge misc See Rx Instructions .MEDSUPPLY Qty: 200 4RF Rx Instructions: As directed lovastatin 10 mg tablet 10 mg PO DAILY Qty: 90 3RF lisinopril 2.5 mg tablet 2.5 mg PO DAILY Qty: 90 3RF diclofenac sodium [Voltaren Arthritis Pain] 1 % gel 2 g TP QID Qty: 100 2RF Rx Instructions: apply to single elbow, wrist or hand; for hand includes palm/fingers/back of hand levothyroxine 25 mcg tablet See Rx Instructions .ROUTE .COMPLEX Qty: 90 0RF Dose Instruction: TAKE 1 TABLET BY MOUTH DAILY FOR THYROID Rx Instructions: TAKE 1 TABLET BY MOUTH DAILY FOR THYROID metformin 500 MG tablet 500 mg PO BID Hold Instructions: Doctor's Order Rx Instructions: take 2 tablets in the morning and 1 tablet in the evening aspirin 81 MG tablet,delayed release (DR/EC) 81 mg PO DAILY pantoprazole 40 MG tablet,delayed release (DR/EC) 40 mg PO DAILY furosemide 20 MG tablet 20 mg PO DAILY Hold Instructions: Doctor's Order ergocalciferol (vitamin D2) 50,000 UNIT capsule 50,000 unit PO QWEEK lisinopril 2.5 MG tablet 2.5 mg PO DAILY Hold Instructions: Doctor's Order methocarbamol 500 MG tablet 500 mg PO TID PRN (Reason: Muscle Spasm) 5 Days Qty: 15 0RF methylprednisolone 4 MG tablets,dose pack 4 mg PO DIRECTED 6 Days Qty: 21 0RF methocarbamol 500 MG tablet 500 mg PO BID PRN (Reason: Muscle Spasm) Qty: 10 0RF methylprednisolone 4 MG tablet 4 mg PO DIRECTED Qty: 21 0RF Rx Instructions: Take as directed on package instructions naproxen 500 MG tablet 500 mg PO BID 5 Days Qty: 10 0RF Referrals Follow up/Referrals: Paul Light MD [Primary Care Provider] - See instructions Activity Restrictions/Add. Instructions Additional Instructions/Restrictions: Drink plenty of fluids. Take tylenol or ibuprofen for pain or fever. Take the medications as directed. Follow up with your regular doctor. GO TO THE ER FOR ANY WORSENING SYMPTOMS Clinical Impressions Clinical Impression: Sinusitis, Pharyngitis Instructions Patient Instructions: Sinusitis, DI for Sinusitis Discharge ED Provider: Bin Garcia [facility] General Stated complaint: sore throat,runny nose,drainage Mode of Arrival: Ambulatory Source of Information: Patient Limitations: No Limitations Time Seen by Provider: 10/18/22 09:07 Description of Symptoms (Recalled from Triage Doc. by RN): PATIENT C/O RUNNY NOSE, SORE THROAT AND SINUS DRAINAGE SINCE LAST TUESDAY HEENT Symptoms (Recalled from RN notes): Yes Resp Symptoms (Recalled from RN notes): No Skin Symptoms (Recalled from RN notes): No MS Symptoms (Recalled from RN notes): No Functional Status (Recalled from RN notes): WNL History of Present Illness Provider Complaint: He states that for the past 3 days he has had a sore throat, sinus congestion and a cough. Related Data Home Medications Medication Instructions Recorded Confirmed aspirin 81 mg tablet,delayed
[2022-10-18 09:18] VITALS: BP 144/83; PULSE 81; RESP 20; TEMP 36.9; O2SAT 97
== END 2022-10-18 09:30 | disposition home or self-care (01) ==
PROVIDERS: Emergency Provider Nurse Practitioner Family; PCP Emergency Medicine
DX: J32.9 Chronic sinusitis, unspecified (principal); J02.9 Acute pharyngitis, unspecified
CPT/HCPCS: 87880; 99212; 99213; G0463

== ENCOUNTER → 2022-11-02 08:58 | Outpatient (CLI) | payer MEDICARE, BC, SELFPAY ==
[2022-11-02 09:05] LABS: Microscopic, Urine URINE MICROSCOPIC (MICROSCOPIC)
[2022-11-02 09:30] LABS: Hematocrit 42.8 % (42.0-52.0); Hemoglobin 14.2 g/dL (14.1-18.0); Mean Corpuscular HGB Conc 33.2 g/dL (31.8-35.4); Mean Corpuscular Hemoglobin 29.9 pg (27.0-31.2); Mean Corpuscular Volume 90.1 fl (80-94); Platelet Count 314 K/mm3 (142-424); Red Blood Count 4.75 M/mm3 (4.60-6.20); Red Cell Distribution Width 13.9 % (11.5-17.5)
[2022-11-02 09:31] LABS: Appearance,Urine CLEAR (Clear); Bilirubin,Urine Negative (Negative); Blood, Urine TRACE-I (Negative); Color,Urine YELLOW (Yellow); Glucose,Urine (UA) Negative (Negative); Ketones,Urine Negative (Negative); Leukocyte Esterase,Urine Negative (Negative); Nitrate,Urine Negative (Negative); PH,Urine 7.5 (5.0-8.5); Protein,Urine TRACE (Negative); Urobilinogen,Urine 0.2 EU/dl (0.2)
[2022-11-02 09:41] LABS: Creatinine,Urine Random 85 mg/dL (Not Estab.)
[2022-11-02 09:50] LABS: Bacteria,Urine Trace /lpf; Squamous Epithelial Cell,Urine Occasional #/hpf (0-5)
[2022-11-02 10:06] LABS: Albumin Level 4.3 g/dl (3.5-5.0); Chloride 106 mmol/L (98-107); Potassium 4.7 mmoL/L (3.5-5.1); Sodium 141 mmol/L (136-145)
[2022-11-02 10:08] LABS: Blood Urea Nitrogen 20 mg/dl (9-20); Estimated Glomerular Filt Rate 40 ml/min (>60); GFR (African American) 48 ML/MIN (>60)
[2022-11-02 10:09] LABS: Anion Gap 16.7 mEq/L (5-15); Calcium 8.4 mg/dl (8.4-10.2); Carbon Dioxide 23 mmol/L (22.0-30.0); Glucose 140 mg/dl (74-100); Phosphorous 3.6 mg/dl (2.5-4.5)
== END ==
PROVIDERS: PCP Emergency Medicine; Visit Provider Internal Medicine Nephrology
DX: N18.30 Chronic kidney disease, stage 3 unspecified (principal)
CPT/HCPCS: 36415; 80069; 81001; 82570; 84155; 85014; 85018; 85048; 85049

== ENCOUNTER → 2022-11-08 14:17 | Outpatient (POV) | payer MEDICARE, BC, SELFPAY | PROVIDERS: Visit Provider Internal Medicine Nephrology | DX: Z00.00 Encounter for general adult medical examination without abnormal findings (principal) ==

== ENCOUNTER → 2023-05-25 09:14 | Outpatient (CLI) | payer MEDICARE, BC, SELFPAY ==
[2023-05-25 09:23] LABS: Microscopic, Urine URINE MICROSCOPIC (MICROSCOPIC)
[2023-05-25 09:46] LABS: Appearance,Urine CLEAR (Clear); Bilirubin,Urine Negative (Negative); Blood, Urine Negative (Negative); Color,Urine YELLOW (Yellow); Glucose,Urine (UA) Negative (Negative); Ketones,Urine Negative (Negative); Leukocyte Esterase,Urine Negative (Negative); Nitrate,Urine Negative (Negative); PH,Urine 7.5 (5.0-8.5); Protein,Urine TRACE (Negative); Specific Gravity, Urine 1.015 (1.005-1.030); Urobilinogen,Urine 0.2 EU/dl (0.2)
[2023-05-25 09:49] LABS: Hematocrit 41.7 % (42.0-52.0); Hemoglobin 12.9 g/dL (14.1-18.0); Mean Corpuscular HGB Conc 30.9 g/dL (31.8-35.4); Mean Corpuscular Hemoglobin 28.6 pg (27.0-31.2); Mean Corpuscular Volume 92.3 fl (80-94); Platelet Count 371 K/mm3 (142-424); Red Blood Count 4.52 M/mm3 (4.60-6.20); Red Cell Distribution Width 13.7 % (11.5-17.5); White Blood Count 7.2 K/mm3 (4.8-10.8)
[2023-05-25 09:57] LABS: Bacteria,Urine Trace /lpf; Squamous Epithelial Cell,Urine Occasional #/hpf (0-5)
[2023-05-25 09:59] LABS: Creatinine,Urine Random 58 mg/dL (Not Estab.)
[2023-05-25 10:42] LABS: Albumin Level 3.7 g/dl (3.5-5.0); Anion Gap 16.5 mEq/L (5-15); Blood Urea Nitrogen 23 mg/dl (9-20); Calcium 8.6 mg/dl (8.4-10.2); Carbon Dioxide 24 mmol/L (22.0-30.0); Chloride 106 mmol/L (98-107); Estimated Glomerular Filt Rate 46 ml/min (>60); GFR (African American) 56 ML/MIN (>60); Glucose 136 mg/dl (74-100); Phosphorous 3.5 mg/dl (2.5-4.5); Potassium 4.5 mmoL/L (3.5-5.1); Sodium 142 mmol/L (136-145)
[2023-05-25 10:54] LABS: Intact Parathyroid Hormone 180.1 pg/mL (7.5-53.5)
== END ==
PROVIDERS: PCP Emergency Medicine; Visit Provider Internal Medicine Nephrology
DX: N18.30 Chronic kidney disease, stage 3 unspecified (principal)
CPT/HCPCS: 36415; 80069; 81001; 82306; 82570; 83970; 84155; 85014; 85018; 85048; 85049

== ENCOUNTER 2023-08-20 10:29 | Emergency (ER) | payer MEDICARE, BC, SELFPAY ==
[2023-08-20] VITALS (10 sets, daily range): BP systolic 112–167; BP diastolic 64–97; PULSE 61–85; RESP 14–20; TEMP 36.6–36.8; O2SAT 95–98; BMI 23.1; BMI 23.6
[2023-08-20 13:04] LABS: POC Glucose,Bedside 183 (70-110)
--- NOTE | 2023-08-20 13:31 | EXP.UTC ---
Discharge Plan Disposition Patient Disposition: Still a Patient Prescriptions Prescriptions: No Action (DME) blood sugar diagnostic Strip 1 strip MISCELLANE BID Qty: 100 4RF Rx Instructions: 1 strip miscellaneous (DME) blood-glucose meter Kit 0 kit .Route .MEDSUPPLY Qty: 1 0RF Rx Instructions: As directed (DME) lancets [Droplet Lancets] 30 gauge misc See Rx Instructions [facility] .MEDSUPPLY Qty: 200 4RF Rx Instructions: As directed diclofenac sodium [Voltaren Arthritis Pain] 1 % gel 2 g TP QID Qty: 100 2RF Rx Instructions: apply to single elbow, wrist or hand; for hand includes palm/fingers/back of hand amlodipine 10 mg tablet See Rx Instructions .ROUTE .COMPLEX Qty: 90 0RF Dose Instruction: TAKE 1 TABLET BY MOUTH DAILY FOR BLOOD PRESSURE Rx Instructions: TAKE 1 TABLET BY MOUTH DAILY FOR BLOOD PRESSURE levothyroxine 25 mcg tablet See Rx Instructions .ROUTE .COMPLEX Qty: 90 0RF Dose Instruction: TAKE 1 TABLET BY MOUTH DAILY FOR THYROID Rx Instructions: TAKE 1 TABLET BY MOUTH DAILY FOR THYROID lovastatin 10 mg tablet See Rx Instructions .ROUTE .COMPLEX Qty: 90 0RF Dose Instruction: TAKE 1 TABLET BY MOUTH DAILY FOR CHOLESTEROL Rx Instructions: TAKE 1 TABLET BY MOUTH DAILY FOR CHOLESTEROL aspirin 81 MG tablet,delayed release (DR/EC) 81 mg PO DAILY Referrals Follow up/Referrals: Sea Metzger DO [Primary Care Provider] - See instructions Activity Restrictions/Add. Instructions Additional Instructions/Restrictions: PT sent to ER for further evaluation and workup to R/O DVT Clinical Impressions Clinical Impression: Pain of left calf, Bilateral leg edema Instructions Patient Instructions: DI for Skin Abscess Discharge ED Provider: Kymberly Becerra [facility] General Chief complaint: Skin/Abscess/Foreign Body Stated complaint: left knee pain and sweeling w/ knot Mode of Arrival: Ambulatory Source of Information: Patient Limitations: No Limitations Time Seen by Provider: 08/20/23 13:11 Description of Symptoms (Recalled from Triage Doc. by RN): PATIENT C/O SWELLING AND PAIN TO LEFT CALF THAT STARTED YESTERDAY HEENT Symptoms (Recalled from RN notes): No Resp Symptoms (Recalled from RN notes): No Skin Symptoms (Recalled from RN notes): No MS Symptoms (Recalled from RN notes): Yes Functional Status (Recalled from RN notes): WNL History of Present Illness Provider Complaint: Pt relates that he started having left calf pain with swelling yesterday. He reports that he feels a knot on the back of his calf and is afraid that he has a DVT. Related Data Home Medications Medication Instructions Recorded Confirmed aspirin 81 mg tablet,delayed 81 mg PO DAILY [facility] 03/22/19 01/06/23 release Previous Rx's Medication Instructions Recorded blood sugar diagnostic #100 ea 02/05/22 blood-glucose meter #1 ea 02/05/22 lancets 30 gauge (Droplet Lancets) #200 ea 02/05/22 diclofenac sodium 1 % topical gel 2 g topical QID #100 grams 02/17/22 (Voltaren Arthritis Pain) amlodipine 10 mg tablet See Rx Instructions .Route 08/10/23 .COMPLEX #90 tabs levothyroxine 25 mcg tablet See Rx Instructions .Route 08/10/23 .COMPLEX #90 tabs lovastatin 10 mg tablet See Rx Instructions .Route 08/10/23 .COMPLEX #90 tabs Allergies Allergy/AdvReac Type Severity Reaction Status Date / Time No Known Allergies Allergy Verified 01/06/23 08:52 Worker's Comp Is this a Worker's Comp case?: No [facility] Disclaimer: The information contained in this section may have been updated after the patient was seen, as this information can be updated by other users. Medical History (Updated 08/20/23 @ 14:26 by Kymberly Becerra MD) CKD (chronic kidney disease) stage 3, GFR 30-59 ml/min Diabetes mellitus, type 2 Hyperlipidemia Hypertension Social History Smoking Status: Markos
--- NOTE | 2023-08-20 14:16 | PC.NURSE ---
Pt setting in chair states nothing needed at this time,call light at bs
--- NOTE | 2023-08-20 14:23 | HMH.EDGENADL ---
Discharge Plan Disposition Patient Disposition: Home, Self-Care Prescriptions Prescriptions: No Action (DME) blood sugar diagnostic Strip 1 strip MISCELLANE BID Qty: 100 4RF Rx Instructions: 1 strip miscellaneous (DME) blood-glucose meter Kit 0 kit .Route .MEDSUPPLY Qty: 1 0RF Rx Instructions: As directed (DME) lancets [Droplet Lancets] 30 gauge misc See Rx Instructions MC .MEDSUPPLY Qty: 200 4RF Rx Instructions: As directed diclofenac sodium [Voltaren Arthritis Pain] 1 % gel 2 g TP QID Qty: 100 2RF Rx Instructions: apply to single elbow, wrist or hand; for hand includes palm/fingers/back of hand amlodipine 10 mg tablet See Rx Instructions .ROUTE .COMPLEX Qty: 90 0RF Dose Instruction: TAKE 1 TABLET BY MOUTH DAILY FOR BLOOD PRESSURE Rx Instructions: TAKE 1 TABLET BY MOUTH DAILY FOR BLOOD PRESSURE levothyroxine 25 mcg tablet See Rx Instructions .ROUTE .COMPLEX Qty: 90 0RF Dose Instruction: TAKE 1 TABLET BY MOUTH DAILY FOR THYROID Rx Instructions: TAKE 1 TABLET BY MOUTH DAILY FOR THYROID lovastatin 10 mg tablet See Rx Instructions .ROUTE .COMPLEX Qty: 90 0RF Dose Instruction: TAKE 1 TABLET BY MOUTH DAILY FOR CHOLESTEROL Rx Instructions: TAKE 1 TABLET BY MOUTH DAILY FOR CHOLESTEROL aspirin 81 MG tablet,delayed release (DR/EC) 81 mg PO DAILY Referrals Follow up/Referrals: Sea Metzger DO [Primary Care Provider] - See instructions Activity Restrictions/Add. Instructions Additional Instructions/Restrictions: At this time is felt you are safe to be discharged home. Please present on Tuesday for your duplex ultrasound to formally rule out clot, they should contact you for an appointment. Please follow-up with your family doctor within 1 week for further evaluation of your lower extremity swelling. If new or worsening symptoms please do not hesitate to return the emergency department. Clinical Impressions Clinical Impression: Pain of left calf, Bilateral leg edema Discharge ED Provider: Kymberly Becerra General Adult HPI <Kymberly Becerra MD - Last Filed: 08/20/23 15:33> General Chief complaint: Skin/Abscess/Foreign Body Stated complaint: left knee pain and sweeling w/ knot Time Seen by Provider: 08/20/23 13:11 Mode of Arrival: Ambulatory Source of Information: Patient Limitations: No Limitations Description of Symptoms (Recalled from ER Triage Doc. by RN): PATIENT C/O SWELLING AND PAIN TO LEFT CALF THAT STARTED YESTERDAY History of Present Illness HPI narrative: Patient is a 73-year-old male sent over from the urgent treatment clinic for evaluation of possible DVT. Patient states that over the last 24 hours he has significant and all of a sudden bilateral lower extremity swelling has never had edema in his lower extremities ever before today. Denies any history of any kidney or liver problems or any heart failure in the past. Urine output has been good. Does state that he does have significant pain in his left calf which is the reason that he came to the emergency department today. No history of DVT or PE as well. Related Data Home Medications Medication Instructions Recorded Confirmed aspirin 81 mg tablet,delayed 81 mg PO DAILY [facility] 03/22/19 01/06/23 release Previous Rx's Medication Instructions Recorded blood sugar diagnostic #100 ea 02/05/22 blood-glucose meter #1 ea 02/05/22 lancets 30 gauge (Droplet Lancets) #200 ea 02/05/22 diclofenac sodium 1 % topical gel 2 g topical QID #100 grams 02/17/22 (Voltaren Arthritis Pain) amlodipine 10 mg tablet See Rx Instructions .Route 08/10/23 .COMPLEX #90 tabs levothyroxine 25 mcg tablet See Rx Instructions .Route 08/10/23 .COMPLEX #90 tabs lovastatin 10 mg tablet See Rx Instructions .Route 08/10/23 .COMPLEX #90 tabs Allergies Allergy/AdvReac Type Severity Reaction Status Date / Time No Known Allergies Allergy Verified 01/06/23
--- NOTE | 2023-08-20 15:16 | PC.NURSE ---
Moved pt to room 8 and placed in gown so could exam pt better
--- NOTE | 2023-08-20 15:17 | PC.NURSE ---
Assumed patient care at this time
--- NOTE | 2023-08-20 15:25 | PC.NURSE ---
Rounded on patient; call light within reach of patient
[2023-08-20 15:45] LABS: Basophils # 0.1 K/mm3 (0-0.2); Basophils % 1.1 % (0.1-2.0); Eosinophils # 0.3 K/mm3 (0.0-0.4); Eosinophils % 3.1 % (0.1-12.0); Hematocrit 42.4 % (42.0-52.0); Hemoglobin 14.1 g/dL (14.1-18.0); Lymphocytes # 2.3 K/mm3 (0.7-4.5); Lymphocytes % 23.7 % (10-50); Mean Corpuscular HGB Conc 33.2 g/dL (31.8-35.4); Mean Corpuscular Hemoglobin 29.1 pg (27.0-31.2); Mean Corpuscular Volume 87.8 fl (80-94); Mean Platelet Volume 7.6 fl (7.4-10.4); Monocytes # 0.7 K/mm3 (0.1-1.0); Monocytes % 7.4 % (1.7-9.3); Neutrophils # 6.2 K/mm3 (1.8-7.8); Neutrophils % 64.6 % (37.0-80.0); Platelet Count 339 K/mm3 (142-424); Red Blood Count 4.83 M/mm3 (4.60-6.20); White Blood Count 9.6 K/mm3 (4.8-10.8)
[2023-08-20 15:49] LABS: Alanine Aminotransferase 17 U/L (12-78); Albumin Level 4.1 g/dl (3.5-5.0); Alkaline Phosphatase 109 U/L (38-126); Anion Gap 11.9 mEq/L (5-15); Aspartate Amino Transferase 24 U/L (17-59); Bilirubin,Total 0.5 mg/dl (0.2-1.3); Blood Urea Nitrogen 22 mg/dl (9-20); Calcium 8.5 mg/dl (8.4-10.2); Carbon Dioxide 22 mmol/L (22.0-30.0); Chloride 109 mmol/L (98-107); Creatine Kinase 58 U/L (55-170); Creatinine Clearance Estimated 40 mL/min (50-200); Estimated Glomerular Filt Rate 42 ml/min (>60); GFR (African American) 51 ML/MIN (>60); Glucose 121 mg/dl (74-100); Potassium 3.9 mmoL/L (3.5-5.1); Sodium 139 mmol/L (136-145); Total Protein,Serum 8.1 g/dl (6.3-8.2)
[2023-08-20 15:51] LABS: INR 0.96 (0.9-1.1); Prothrombin Time 10.4 seconds (10.1-12.5)
[2023-08-20 15:58] LABS: NT Pro Brain Natriuretic Pep. 38.1 pg/mL (0-125)
--- NOTE | 2023-08-20 16:08 | CT_ITS ---
PROCEDURE INFORMATION: Exam: CTA Abdomen and Pelvis With Contrast Exam date and time: 08/20/2023 4:48 PM Age: 73 years old Clinical indication: Other: Edema; Additional info: Ble edema significatn acute TECHNIQUE: Imaging protocol: Computed tomographic angiography of the abdomen and pelvis with contrast. Exam focused on the arteries. 3D rendering (Not supervised by radiologist): MIP and/or 3D reconstructed images were created by the technologist. Radiation optimization: All CT scans at this facility use at least one of these dose optimization techniques: automated exposure control; mA and/or kV adjustment per patient size (includes targeted exams where dose is matched to clinical indication); or iterative reconstruction. Contrast material: ISOVUE; Contrast volume: 100 ml; Contrast route: INTRAVENOUS (IV); REPORTING DATA: Count of CT and Cardiac NM exams in prior 12 months: This patient has received 0 known CTs and 0 known cardiac nuclear medicine studies in the 12 months prior to the current study. COMPARISON: [facility] CT abdomen pelvis wo con 03/22/2019 2:33 AM FINDINGS: Aorta: No aortic aneurysm. No aortic dissection. Celiac trunk and mesenteric arteries: Severe short segment stenosis without occlusion origin of the inferior mesenteric artery. Renal arteries: No occlusion or significant stenosis. Right iliac arteries: No occlusion or significant stenosis. Left iliac arteries: No occlusion or significant stenosis. Other arteries: Moderate atherosclerosis without dissection, aneurysm or occlusion in the central intra-abdominal arterial branching. Liver: Mildly fatty liver. No suspicious mass. Gallbladder and bile ducts: Unremarkable. No calcified stones. No ductal dilation. Pancreas: Unremarkable. No mass. No ductal dilation. Spleen: Unremarkable. No splenomegaly. Adrenal glands: Unremarkable. No mass. Kidneys and ureters: Mildly atretic right kidney. Tiny subcentimeter left renal probable cysts too small to fully characterize. No suspicious mass. Stomach and bowel: Moderate diverticulosis. Appendix: Normal appendix. Intraperitoneal space: Unremarkable. No free air. No significant fluid collection. Lymph nodes: Unremarkable. No enlarged lymph nodes. Urinary bladder: Unremarkable. No mass. Reproductive: Mildly enlarged prostate. Bones/joints: No acute fracture. Soft tissues: Unremarkable. Other findings: No other acute pathology seen. As above. IMPRESSION: 1. Moderate atherosclerosis without dissection, aneurysm or occlusion in the central intra-abdominal arterial branching. 2. No other acute pathology seen. As above.
[2023-08-20 16:15] LABS: Microscopic, Urine URINE MICROSCOPIC (MICROSCOPIC)
[2023-08-20 16:23] LABS: Appearance,Urine CLEAR (Clear); Bilirubin,Urine Negative (Negative); Blood, Urine 1+ (Negative); Color,Urine YELLOW (Yellow); Glucose,Urine (UA) TRACE (Negative); Ketones,Urine Negative (Negative); Leukocyte Esterase,Urine Negative (Negative); Nitrate,Urine Negative (Negative); Protein,Urine TRACE (Negative); Specific Gravity, Urine 1.025 (1.005-1.030)
[2023-08-20 16:36] LABS: RBC,Urine Occasional #/hpf (0-3); Squamous Epithelial Cell,Urine Occasional #/hpf (0-5)
[2023-08-20 16:44] LABS: D-Dimer 1.45 ug/mL (0.0-0.5)
--- NOTE | 2023-08-20 18:17 | PC.NURSE ---
Face sheet faxed to [id number]
== END 2023-08-20 18:20 | disposition home or self-care (01) ==
LOC: UTC 13:39 → COUGHCL 13:43 → ER 13:43
PROVIDERS: Emergency Medicine; Nurse Practitioner Family; Emergency Provider Student in an Organized Health Care Education/Training Program; PCP Internal Medicine
DX: M79.662 Pain in left lower leg (principal); R22.43 Localized swelling, mass and lump, lower limb, bilateral; N18.30 Chronic kidney disease, stage 3 unspecified; E11.9 Type 2 diabetes mellitus without complications; E78.5 Hyperlipidemia, unspecified; I12.9 Hypertensive chronic kidney disease with stage 1 through stage 4 chronic kidney disease, or unspecified chronic kidney disease
CPT/HCPCS: 36415; 74174; 80053; 81001; 82550; 82962; 83880; 85025; 85378; 85610; 99285; Q9967

== ENCOUNTER → 2023-08-23 08:53 | Outpatient (CLI) | payer MEDICARE, BC, SELFPAY ==
--- NOTE | 2023-08-23 | CA_ITS ---
FINAL REPORT TECHNIQUE: Ultrasound images of the deep venous system were obtained from the left groin to the calf veins. CLINICAL HISTORY: LEFT POSTERIOR KNEE PAIN FINDINGS: The deep venous system is normally compressible. Normal flow is identified. IMPRESSION: No evidence of left lower extremity DVT. Reviewed, Interpreted and Dictated by Marin Hawkins MD Transcribed by Pati Reddy Authenticated and [facility]
== END ==
PROVIDERS: PCP Internal Medicine; Visit Provider Internal Medicine
DX: M79.605 Pain in left leg (principal)
CPT/HCPCS: 93971

== ENCOUNTER 2023-11-04 13:10 | Outpatient (CLI) | payer MEDICARE, BC, SELFPAY ==
[2023-11-04 13:58] LABS: Creatinine,Urine Random 21 mg/dL (Not Estab.)
[2023-11-04 13:59] LABS: Microalbumin/Creatinine Ratio 128.5
== END 2023-11-04 23:59 ==
PROVIDERS: PCP Family Medicine; Visit Provider Family Medicine
DX: E11.9 Type 2 diabetes mellitus without complications (principal)
CPT/HCPCS: 82043; 82570

== ENCOUNTER 2023-11-04 23:47 | Observation (INO) | payer MEDICARE, BC, SELFPAY ==
[2023-11-05] VITALS (10 sets, daily range): BP systolic 119–138; BP diastolic 53–84; PULSE 67–89; RESP 16–20; TEMP 36.2–36.7; O2SAT 94–97; BMI 27.7; BMI 27.6
--- NOTE | 2023-11-05 00:06 | PC.NURSE ---
FSBS read HI on glucometer, Per MD, use blood from IV start for glucose.
--- NOTE | 2023-11-05 00:07 | ED_ITS ---
Discharge Plan Disposition Chief Complaint: Hyper/Hypoglycemia Prescriptions Prescriptions: No Action metformin 500 mg tablet 500 mg PO BID Qty: 60 2RF triamcinolone acetonide 0.1 % cream 1 applic topical TID Qty: 30 0RF omeprazole 20 mg capsule,delayed release(DR/EC) 20 mg PO DAILY Qty: 30 2RF (DME) FreeStyle Ines 14 Day Sensor Kit See Rx Instructions .Route Qty: 1 0RF Rx Instructions: As directed Please include everything PT needs. (DME) blood sugar diagnostic Strip 1 strip MISCELLANE BID Qty: 100 4RF Rx Instructions: 1 strip miscellaneous (DME) blood-glucose meter Kit 0 kit .Route .MEDSUPPLY Qty: 1 0RF Rx Instructions: As directed (DME) lancets [Droplet Lancets] 30 gauge misc See Rx Instructions MC .MEDSUPPLY Qty: 200 4RF Rx Instructions: As directed amlodipine 10 mg tablet See Rx Instructions .ROUTE .COMPLEX Qty: 90 0RF Dose Instruction: TAKE 1 TABLET BY MOUTH DAILY FOR BLOOD PRESSURE Rx Instructions: TAKE 1 TABLET BY MOUTH DAILY FOR BLOOD PRESSURE levothyroxine 25 mcg tablet See Rx Instructions .ROUTE .COMPLEX Qty: 90 0RF Dose Instruction: TAKE 1 TABLET BY MOUTH DAILY FOR THYROID Rx Instructions: TAKE 1 TABLET BY MOUTH DAILY FOR THYROID lovastatin 10 mg tablet See Rx Instructions .ROUTE .COMPLEX Qty: 90 0RF Dose Instruction: TAKE 1 TABLET BY MOUTH DAILY FOR CHOLESTEROL Rx Instructions: TAKE 1 TABLET BY MOUTH DAILY FOR CHOLESTEROL Discharge ED Provider: Nabeel Coley General Adult HPI General Chief complaint: Hyper/Hypoglycemia Stated complaint: dizziness,umaña,urinating every 15 min,hi blood sugar Time Seen by Provider: 11/04/23 23:55 Mode of Arrival: Family Vehicle Source of Information: Patient Limitations: No Limitations Description of Symptoms (Recalled from ER Triage Doc. by RN): 73 yo male who is NIDDM presents with hyperglycemia at home, increased urination, increased thirst. Denies recent illness. History of Present Illness HPI narrative: 73-year-old male with history of hsz-tcbxbgq-hjutkxzic diabetes presents with concern for hyperglycemia. Reports increased urination and thirst at home. He takes metformin for his diabetes. He also reports chronic kidney disease, hypertension, hyperlipidemia. Patient appears minimally confused on initial evaluation. Denies any recent fever or illness. Patient reports that he drinks approximately half a gallon of orange juice yesterday. Related Data Previous Rx's Medication Instructions Recorded blood sugar diagnostic #100 ea 02/05/22 blood-glucose meter #1 ea 02/05/22 lancets 30 gauge (Droplet Lancets) #200 ea 02/05/22 amlodipine 10 mg tablet See Rx Instructions .Route 11/04/23 .COMPLEX #90 tabs flash glucose sensor (FreeStyle #1 ea 11/04/23 Ines 14 Day Sensor kit) levothyroxine 25 mcg tablet See Rx Instructions .Route 11/04/23 .COMPLEX #90 tabs lovastatin 10 mg tablet See Rx Instructions .Route 11/04/23 .COMPLEX #90 tabs metformin 500 mg tablet 500 mg PO BID #60 tabs 11/04/23 omeprazole 20 mg capsule,delayed 20 mg PO DAILY #30 caps 11/04/23 release triamcinolone acetonide 0.1 % 1 applic topical TID #30 grams 11/04/23 topical cream Allergies Allergy/AdvReac Type Severity Reaction Status Date / Time No Known Allergies Allergy Verified 11/04/23 10:47 [facility] Disclaimer: The information contained in this section may have been updated after the patient was seen, as this information can be updated by other users. Medical History (Updated 11/04/23 @ 12:07 by Asia Spaulding APRN) Gout attack Strain of neck muscle Pharyngitis Sinusitis Corneal abrasion Right hand pain Abdominal pain Duodenitis Enterocolitis Muscle spasm Diabetes mellitus, type 2 Hyperlipidemia Hypertension CKD (chronic kidney disease) stage 3, GFR 30-59 ml/min Social History Smoking Status: Unknown if ever smoked alcohol intake: never substance use type: denies use current occupational status: retired Travel in the last 8 weeks: None ROS Obtained: Yes All systems reviewed & no additional complaints except as documented Physical Exam General General appearance: alert and in no apparent distress Head Head exam: atraumatic and normocephalic Eye Eye exam: Present normal appearance, PERRL and EOMI ENT ENT exam: Present normal oropharynx, mucous membranes dry and normal external ear exam Neck Neck exam: Present normal inspection and full ROM Chest Chest inspection: Present normal inspection and symmetric chest wall rise; Absent tenderness Respiratory Respiratory exam: Present normal lung sounds bilaterally; Absent respiratory distress Cardiovascular Cardiovascular exam: Present regular rate and normal rhythm Abdominal Exam Abdominal exam: Present soft; Absent distention, tenderness or guarding Extremities Exam Extremities exam: Present normal inspection; Absent edema or joint swelling Back Exam Back exam: Present normal inspection; Absent tenderness Neurological Exam Neurological exam: Present alert and oriented X3 (Mildly confused); Absent motor sensory deficit Psychiatric Psychiatric exam: Present normal affect and normal mood Skin Skin exam: Present warm, dry and normal color Lymphatic Lymphatic Findings: no adenopathy Medical Decision Making Medical Records Medical records reviewed: Yes I reviewed the patient's medical records. Elian Inquiry Pt receiving controlled substance: No Elian was queried for this patient: No Vital Signs: 11/05/23 00:00 11/05/23 00:15 11/05/23 00:45 Temperature 97.2 F L Temperature Source Oral Pulse Rate 80 74 Pulse Rate [Right Brachial] 86 Respiratory Rate 16 20 18 Blood Pressure 126/70 133/76 Blood Pressure [Right Arm] 125/69 Blood Pressure Mean 95 85 Blood Pressure Mean [Right Arm] 87 Blood Pressure Source [Right Arm] Automatic Cuff Blood Pressure Position [Right Arm] Sitting 02 Sat by Pulse Oximetry 96 96 95 Oxygen Delivery Method Room Air Room Air Room Air 11/05/23 01:00 Temperature Temperature Source Pulse Rate 76 Pulse Rate [Right Brachial] Respiratory Rate 18 Blood Pressure 138/82 Blood Pressure [Right Arm] Blood Pressure Mean 90 Blood Pressure Mean [Right Arm] Blood Pressure Source [Right Arm] Blood Pressure Position [Right Arm] 02 Sat by Pulse Oximetry 94 L Oxygen Delivery Method Room Air Lab Data Lab results reviewed: Yes I reviewed the patient's lab results. Lab Results 11/05/23 00:00: Urine Color Yellow, Urine Appearance Clear, Urine pH 6.0, Ur Specific [place] <= 1.005, Urine Protein Negative, Urine Glucose (UA) Trace, Urine Ketones Negative, Urine Blood 1+, Urine Nitrate Negative, Urine Bilirubin Negative, Urine Urobilinogen 0.2, Ur Leukocyte Esterase Negative, Urine RBC Occasional, Urine WBC None, Ur Squamous Epith Cells None, Urine Bacteria None 11/05/23 00:06: VBG pH 7.37, VBG pCO2 40.6, VBG pO2 35.0, VBG HCO3 22.9 L, VBG Total CO2 24.1, VBG O2 Saturation 70.9 H, VBG Base Excess -2.4 11/05/23 00:07: WBC 11.1 H, RBC 5.05, Hgb 14.6, Hct 46.2, MCV 91.5, MCH 28.9, M CHC 31.6 L, RDW 13.8, Plt Count 362, MPV 7.9, Neut % (Auto) 62.3, Lymph % (Auto) 26.5, [place] % (Auto) 7.6, Eos % (Auto) 2.1, Baso % (Auto) 1.5, Neut # (Auto) 6.9, Lymph # (Auto) 2.9, [place] # (Auto) 0.8, Eos # (Auto) 0.2, Baso # (Auto) 0.2, VBG Lactic Acid 2.9 H, Sodium 126 L, Potassium 4.4, Chloride 93 L, Carbon Dioxide 23, Anion Gap 14.4, BUN 29 H, Creatinine 2.20 H, Estimated Creat Clear 33, E stimated GFR 29 L, Est GFR ( Amer) 36 L, Glucose 739 H*, Calcium 9.0, Magnesium 2.2, Total Bilirubin 0.8, AST 29, ALT 26, Alkaline Phosphatase 200 H, Lactate Dehydrogenase 159 L, Total Protein 7.5, Albumin 4.1, Globulin 3.4 H, Albumin/Globulin Ratio 1.2, Acetone Level None detected 11/05/23 00:07 11/05/23 00:07 Orders (Tests/Meds): ED MEDICATIONS Generic Name Dose Route Start Last Admin Trade Name Freq PRN Reason Stop Dose Admin Insulin Human Regular 8 unit 11/05/23 02:22 11/05/23 02:26 Insulin Human Regular 100 Units/Ml 10ml Vial 0.1 unit/kg (8 unit) 11/05/23 02:23 8 unit IV Administration ONCE ONE Discontinued Medications Generic Name Dose Route Start Last Admin Trade Name Freq PRN Reason Stop Dose Admin Lactated Ringer's 1,000 mls @ 999 mls/hr 11/05/23 00:15 11/05/23 00:33 Lactated Ringer's 1000 Ml Bag IV 11/05/23 01:15 999 mls/hr .Q1H1M NICK Administration ORDERS Category Date Time Status Acetone, Serum (Rapid) Stat Lab 11/05/23 00:07 Completed CBC w/Auto Diff [Complete Blood Count Auto Diff] Stat Lab 11/05/23 00:07 Completed CMP [Comprehensive Metabolic Panel] Stat Lab 11/05/23 00:07 Completed Lactate Dehydrogenase Stat Lab 11/05/23 00:07 Completed Lactate Venous Stat Lab 11/05/23 00:07 Completed Magnesium Stat Lab 11/05/23 00:07 Completed Osmolality Stat Lab 11/05/23 00:07 Received UA [Urinalysis and Microscopic] Stat Lab 11/05/23 00:00 Completed VBG [Venous Blood Gas] Stat RT 11/05/23 00:06 Completed Medical Decision Narrative: 73-year-old male with history of [id number]-todidvkgz diabetes, hypertension hyperlipidemia and chronic kidney disease presents with increased urination at home and mild confusion. History was obtained interactive discussion with patient, chart review. On arrival, patient is [afebrile, hemodynamically stable, satting appropriately, alert, oriented x4, GCS 15], moving all extremities spontaneously. Full physical exam performed and significant for dry mucous membranes, benign exam otherwise. Fingerstick blood glucose reads too high. Differential includes but is not limited to hyperglycemia, DKA, HHS, UTI, dehydration, electrolyte derangement. Patient was given 1 L fluid bolus for symptomatic management and correction of underlying abnormalities. Workup initiated including CBC CMP lactate VBG acetone serum acetone. On re-evaluation, patient [remains afebrile, HD stable.] Laboratory workup independently interpreted by me and significant for hyperglycemia with glucose of 700+, pseudohyponatremia with sodium 126. Creatinine at baseline. Urine without evidence of infection. Acetone and pH normal. Minimally elevated lactate. Given patient history, exam and workup, patient's presentation most likely represents severe hyperglycemia, possibly consistent with HHS. Patient is mildly confused. The serum osmolality is a send out, we do not have that result. Given he is insulin na?ve and hemodynamically stable, we will treat him conservatively. Patient initiated on 0.1 units/kg of IV regular insulin. Interactive discussion had with the hospitalist on-call for admission for further evaluation and management. Procedures Risk/Benefits of Procedure(s) Were Explained: Yes Critical Care Critical Care Time Critical Care Time: Yes Attestation: On 11/04/23, the high probability of a clinically significant, sudden or life threatening deterioration of the following system(s) endocrine required my full and direct attention, intervention and personal management. The time I documented below is in addition to time spent performing reported procedures but includes the following listed in this critical care notation. Total Time Total Critical Care Time: 40
[2023-11-05 00:10] LABS: Microscopic, Urine URINE MICROSCOPIC (MICROSCOPIC)
[2023-11-05 00:11] LABS: Appearance,Urine CLEAR (Clear); Bilirubin,Urine Negative (Negative); Blood, Urine 1+ (Negative); Color,Urine YELLOW (Yellow); Glucose,Urine (UA) TRACE (Negative); Ketones,Urine Negative (Negative); Leukocyte Esterase,Urine Negative (Negative); Nitrate,Urine Negative (Negative); Protein,Urine Negative (Negative); Specific Gravity, Urine <= 1.005 (1.005-1.030); Urobilinogen,Urine 0.2 EU/dl (0.2)
[2023-11-05 00:18] LABS: Basophils # 0.2 K/mm3 (0-0.2); Basophils % 1.5 % (0.1-2.0); Eosinophils # 0.2 K/mm3 (0.0-0.4); Eosinophils % 2.1 % (0.1-12.0); Hematocrit 46.2 % (42.0-52.0); Hemoglobin 14.6 g/dL (14.1-18.0); Lymphocytes # 2.9 K/mm3 (0.7-4.5); Lymphocytes % 26.5 % (10-50); Mean Corpuscular HGB Conc 31.6 g/dL (31.8-35.4); Mean Corpuscular Hemoglobin 28.9 pg (27.0-31.2); Mean Corpuscular Volume 91.5 fl (80-94); Mean Platelet Volume 7.9 fl (7.4-10.4); Monocytes # 0.8 K/mm3 (0.1-1.0); Monocytes % 7.6 % (1.7-9.3); Neutrophils # 6.9 K/mm3 (1.8-7.8); Neutrophils % 62.3 % (37.0-80.0); Platelet Count 362 K/mm3 (142-424); Red Blood Count 5.05 M/mm3 (4.60-6.20); Red Cell Distribution Width 13.8 % (11.5-17.5); White Blood Count 11.1 K/mm3 (4.8-10.8)
[2023-11-05 00:19] LABS: Chloride 93 mmol/L (98-107)
[2023-11-05 00:20] LABS: Potassium 4.4 mmoL/L (3.5-5.1); Sodium 126 mmol/L (136-145)
[2023-11-05 00:22] LABS: Alanine Aminotransferase 26 U/L (12-78); Albumin Level 4.1 g/dl (3.5-5.0); Alkaline Phosphatase 200 U/L (38-126); Aspartate Amino Transferase 29 U/L (17-59); Bilirubin,Total 0.8 mg/dl (0.2-1.3); Blood Urea Nitrogen 29 mg/dl (9-20); Creatinine Clearance Estimated 33 mL/min (50-200); Estimated Glomerular Filt Rate 29 ml/min (>60); GFR (African American) 36 ML/MIN (>60); Globulin 3.4 g/dL (1.3-3.2); Total Protein,Serum 7.5 g/dl (6.3-8.2)
[2023-11-05 00:22] LABS: RBC,Urine Occasional #/hpf (0-3)
[2023-11-05 00:23] LABS: Albumin/Globulin Ratio 1.2 (1.1-1.8); Anion Gap 14.4 mEq/L (5-15); Carbon Dioxide 23 mmol/L (22.0-30.0); Magnesium 2.2 mg/dl (1.6-2.3)
[2023-11-05 00:26] LABS: Acetone, Serum (Rapid) None Detected (None Detect)
[2023-11-05 00:30] LABS: Glucose 739 mg/dl (74-100)
[2023-11-05] MEDS: LACTATED RINGERS 1000ML 1,000 ML 999 ML IV (00:33)
[2023-11-05 00:40] LABS: VBG Base Excess -2.4 mmol/L (-2.4-2.3); VBG HCO3 22.9 mmol/L (23-30); VBG Oxygen Saturation 70.9 % (50-70); VBG PCO2 40.6 mmol/L (35-51); VBG PH 7.37 mmol/L (7.31-7.41); VBG Total CO2 24.1 mmol/L (23-27)
[2023-11-05 00:44] LABS: Lactate Venous 2.9 mmol/L (0.4-2.0)
[2023-11-05 00:48] LABS: Lactate Dehydrogenase 159 U/L (313-618)
--- NOTE | 2023-11-05 02:21 | PC.NURSE ---
on phone with hospitalist
--- NOTE | 2023-11-05 02:23 | PC.NURSE ---
Bed assignment 201 given by charge. Registration notified.
--- NOTE | 2023-11-05 02:24 | PC.NURSE ---
visiting housekeeper notified of need for bed. spoke with valeire portillo.
[2023-11-05] MEDS: INSULIN HUMAN REGULAR 100 UNITS/ML 10ML VIAL 8 UNIT IV (02:26)
--- NOTE | 2023-11-05 02:30 | EXP.HP ---
History of Present Illness *Admission Date: 11/05/23 *Reason for visit:: hyperglycemia *History of present illness: This is a 73-year-old male with PMHx of more than 30 years NIDDM, CKD, HTN, HLD, GERD. Gout, presented to ED with concern for hyperglycemia. Reports increased urination and thirst at home. reported to be minimally confused. Patient went to his PCP office the morning prior to admission and found to be on hypeglycemi, to high to be read at that time. Patient apparently did not want to come to ER. He takes metformin for his diabetes. A1c has been 13. Denies any recent fever or illness. Patient reports that he drinks approximately half a gallon of orange juice yesterday. Improved mentation at the time of this interview admitted for further treatment and management. [facility] Disclaimer: The information contained in this section may have been updated after the patient was seen, as this information can be updated by other users. Medical History (Updated 11/05/23 @ 06:25 by Chava Badillo APRN) Hypothyroidism Pharyngitis Sinusitis Diabetes mellitus, type 2 Hyperlipidemia Hypertension Corneal abrasion CKD (chronic kidney disease) stage 3, GFR 30-59 ml/min Right hand pain Gout attack Strain of neck muscle Muscle spasm Enterocolitis Duodenitis Abdominal pain Surgical History (Updated 11/05/23 @ 03:20 by Tabitha Pathak RN) H/O hernia repair H/O hand surgery Social History Smoking Status: Unknown if ever smoked alcohol intake: never substance use type: denies use current occupational status: retired Travel in the last 8 weeks: None Review of Systems Review of Systems Review of systems:: pertinent systems reviewed and negative unless documented below Meds Home Medications and Allergies Home Medications Medication Instructions Recorded Confirmed Type amlodipine 10 mg tablet 10 mg PO DAILY High Blood Pressure 11/05/23 11/05/23 History levothyroxine 25 mcg tablet 25 mcg PO DAILYDM THYROID 11/05/23 11/05/23 History lovastatin 10 mg tablet 10 mg PO DAILY Cholesterol 11/05/23 11/05/23 History metformin 500 mg tablet 500 mg PO BIDWMEAL Diabetes 11/05/23 11/05/23 History omeprazole 20 mg capsule,delayed 20 mg PO DAILY Acid Reflux 11/05/23 11/05/23 History release triamcinolone acetonide 0.1 % 1 applic topical TID Skin Condition 11/05/23 11/05/23 History topical cream New Prescriptions to Start Prescriptions: Allergies Allergy/AdvReac Type Severity Reaction Status Date / Time No Known Allergies Allergy Verified 11/04/23 10:47 Exam Data for Last 24 hours Vital signs and Labs for Last 24 Hours: Temp Pulse Resp BP Pulse Ox O2 Del Method 97.2 F L 76 18 138/82 94 L Room Air 11/05/23 00:00 11/05/23 01:00 11/05/23 01:00 11/05/23 01:00 11/05/23 01:00 11/05/23 01:00 Laboratory Results - last 24 hr 11/05/23 00:00: Urine Color Yellow, Urine Appearance Clear, Urine pH 6.0, Ur Specific [place] <= 1.005, Urine Protein Negative, Urine Glucose (UA) Trace, Urine Ketones Negative, Urine Blood 1+, Urine Nitrate Negative, Urine Bilirubin Negative, Urine Urobilinogen 0.2, Ur Leukocyte Esterase Negative, Urine RBC Occasional, Urine WBC None, Ur Squamous Epith Cells None, Urine Bacteria None 11/05/23 00:06: VBG pH 7.37, VBG pCO2 40.6, VBG pO2 35.0, VBG HCO3 22.9 L, VBG Total CO2 24.1, VBG O2 Saturation 70.9 H, VBG Base Excess -2.4 11/05/23 00:07: WBC 11.1 H, RBC 5.05, Hgb 14.6, Hct 46.2, MCV 91.5, MCH 28.9, MCHC 31.6 L, RDW 13.8, Plt Count 362, MPV 7.9, Neut % (Auto) 62.3, Lymph % (Auto) 26.5, [place] % (Auto) 7.6, Eos % (Auto) 2.1, Baso % (Auto) 1.5, Neut # (Auto) 6.9, Lymph # (Auto) 2.9, [place] # (Auto) 0.8, Eos # (Auto) 0.2, Baso # (Auto) 0.2, VBG Lactic Acid 2.9 H, Sodium 126 L, Potassium 4.4, Chloride 93 L, Carbon Dioxide 23, Anion Gap 14.4, BUN 29 H, Creatinine 2.20 H, Estimated Creat Clear 33, Estimated GFR 29 L, Est GFR ( Amer) 36 L, Glucose 739 H*, Calcium 9.0, Magnesium 2.2, Total Bilirubin 0.8, AST 29, ALT 26, Alkaline Phosphatase 200 H, Lactate Dehydrogenase 159 L, Total Protein 7.5, Albumin 4.1, Globulin 3.4 H, Albumin/Globulin Ratio 1.2, Acetone Level None detected I & O for Last 24 hours: Intake & Output 11/02/23 11/03/23 11/04/23 11/05/23 23:59 23:59 23:59 23:59 Weight 78.018 kg Constitutional Constitutional: mild distress and cooperative *Routine HEENT Exam Head: Present normocephalic and atraumatic Eye: Present EOMI, PERRL and normal accommodation ENT: Present mucous membranes dry *Routine Neck Exam Neck: Present supple, full ROM and trachea midline *Routine Respiratory Exam Respiratory: Present CTA bilaterally, normal respiratory effort and symmetric chest movement; Absent respiratory distress *Routine Cardiovascular Exam Cardiovascular: Present RRR, Normal S1 and Normal S2 *Routine Abdominal Exam Abdominal: Present soft and normoactive bowel sounds; Absent tenderness or distended *Routine Rectal Exam Rectal:: deferred *Routine Genitalia Exam Genitalia:: deferred *Routine Extremities Exam Extremities: Present edema, full ROM and pulses intact; Absent cyanosis or clubbing Comments: 3+ bilateral pitting edema *Routine Skin Exam Skin: Present intact; Absent cyanosis or rash *Routine Neurological Exam Neurological: Present alert, oriented X3, moving all extremities and normal speech Routine Psychiatric Exam Psychiatric: Present cooperative, good insight and good judgment H&P: Result Imaging and Cardiology EKG: Status: image reviewed by me and Preliminary report Assessment and Plan *Assessment and plan (1) Hyperglycemia: Status: Acute Category: Medical Code(s): R73.9 - Hyperglycemia, unspecified (2) Hyponatremia: Status: Acute Category: Medical Code(s): E87.1 - Hypo-osmolality and hyponatremia (3) Diabetes: Status: Acute Qualifiers: Diabetes mellitus complication status: with other specified complication Diabetes mellitus superintendent container terminal insulin use: without penitentiary use Diabetes mellitus type: type 2 Qualified Code(s): E11.69 - Type 2 diabetes mellitus with other specified complication Category: Medical Code(s): E11.9 - Type 2 diabetes mellitus without complications (4) GERD (gastroesophageal reflux disease): Status: Acute Qualifiers: Esophagitis presence: esophagitis presence not specified Qualified Code(s): K21.9 - Gastro-esophageal reflux disease without esophagitis Category: Medical Code(s): K21.9 - Gastro-esophageal reflux disease without esophagitis (5) Hyperlipidemia: Status: Acute Qualifiers: Hyperlipidemia type: unspecified Qualified Code(s): E78.5 - Hyperlipidemia, unspecified Category: Medical Code(s): E78.5 - Hyperlipidemia, unspecified (6) Hypertension: Status: Acute Qualifiers: Hypertension type: unspecified Qualified Code(s): I10 - Essential (primary) hypertension Category: Medical Code(s): I10 - Essential (primary) hypertension (7) CKD (chronic kidney disease) stage 3, GFR 30-59 ml/min: Status: Chronic Qualifiers: Chronic kidney disease stage 3 subtype: stage 3b (GFR 30-44) Qualified Code(s): N18.32 - Chronic kidney disease, stage 3b Category: Medical Code(s): N18.30 - Chronic kidney disease, stage 3 unspecified (8) Bilateral leg edema: Status: Acute Category: Medical Code(s): R60.0 - Localized edema Plan 73-year-old male with PMHx of more than 30 years NIDDM, CKD, HTN, HLD, GERD. Gout, presented to ED with concern for hyperglycemia. Reports increased urination and thirst at home. reported to be minimally confused. On arrival BS was greater than 700. Creatinine at baseline. Urine without evidence of infection. Acetone and pH normal. Minimally elevated lactate. 8 unit IVP given and started on IV hydration. Discussed with ER for admission. plan as follow: -hyperglycemia, suspected uncontrolled NIDDM. To r/o HHS. hyponatremia admit patient. start on continuos IV replacement. NS @75ml/hr monitor and watch for other lectrolytes imbalances started on 10units lantus sliding scales. accucheck before meals urine pending hold metformin repeat labs in the morning others chronic conditions: GERD, HTN, HLD, Hypothyroidism conditions reviewed. stable resume home medication bilateral lower extremities edema: Doppler reviewed and negative. suspected edema related to CKD. will deferred to primary PCP for further work up lovenox for DVT ppx. on protonix for GERD and gi bleed ppx full code Rounded on patient after nurse practitioner. Personally examined and interviewed patient. Agree with exam findings and care plan as documented. Patient glucose improving, 341 on morning labs. Will add long-acting insulin with 15 units insulin glargine once this morning, continue with 10 units this evening. For total of 25 units long-acting insulin today. Will make adjustments for tomorrow pending morning glucose. Monitoring sliding scale needs. Advance diet today. Repeat labs in the morning.
--- NOTE | 2023-11-05 02:36 | PC.NURSE ---
report called to [place]
--- NOTE | 2023-11-05 03:01 | PC.NURSE ---
pt arrived to floor at this time
[2023-11-05] MEDS: 0.9 % SODIUM CHLORIDE 1000ML 1,000 ML 75 ML IV (03:41)
[2023-11-05 03:50] LABS: POC Glucose,Bedside 287 (70-110)
[2023-11-05 04:37] LABS: Reflex Lactic Add Lactic Reflex
[2023-11-05 04:59] LABS: Lactic Acid Follow Up (RFLX 1) 2.1 mmol/L (0.7-2.1)
[2023-11-05 05:22] LABS: Lactate Venous 1.9 mmol/L (0.4-2.0)
[2023-11-05 05:24] LABS: Basophils # 0.1 K/mm3 (0-0.2); Basophils % 1.1 % (0.1-2.0); Eosinophils # 0.2 K/mm3 (0.0-0.4); Hematocrit 42.7 % (42.0-52.0); Hemoglobin 13.9 g/dL (14.1-18.0); Lymphocytes # 2.3 K/mm3 (0.7-4.5); Lymphocytes % 20.4 % (10-50); Mean Corpuscular HGB Conc 32.5 g/dL (31.8-35.4); Mean Corpuscular Hemoglobin 29.3 pg (27.0-31.2); Mean Corpuscular Volume 90.2 fl (80-94); Mean Platelet Volume 7.3 fl (7.4-10.4); Monocytes # 0.8 K/mm3 (0.1-1.0); Monocytes % 7.3 % (1.7-9.3); Neutrophils # 7.8 K/mm3 (1.8-7.8); Neutrophils % 69.2 % (37.0-80.0); Platelet Count 305 K/mm3 (142-424); Red Blood Count 4.74 M/mm3 (4.60-6.20); Red Cell Distribution Width 13.9 % (11.5-17.5); White Blood Count 11.3 K/mm3 (4.8-10.8)
[2023-11-05 05:28] LABS: Chloride 101 mmol/L (98-107); Potassium 3.6 mmoL/L (3.5-5.1); Sodium 133 mmol/L (136-145)
[2023-11-05 05:30] LABS: Alanine Aminotransferase 23 U/L (12-78); Aspartate Amino Transferase 27 U/L (17-59); Blood Urea Nitrogen 28 mg/dl (9-20); Creatinine Clearance Estimated 38 mL/min (50-200); Estimated Glomerular Filt Rate 35 ml/min (>60); GFR (African American) 42 ML/MIN (>60)
[2023-11-05 05:31] LABS: Albumin Level 3.7 g/dl (3.5-5.0); Albumin/Globulin Ratio 1.2 (1.1-1.8); Alkaline Phosphatase 170 U/L (38-126); Anion Gap 11.6 mEq/L (5-15); Bilirubin,Total 0.6 mg/dl (0.2-1.3); Calcium 8.8 mg/dl (8.4-10.2); Carbon Dioxide 24 mmol/L (22.0-30.0); Globulin 3.2 g/dL (1.3-3.2); Glucose 341 mg/dl (74-100); Magnesium 2.2 mg/dl (1.6-2.3); Total Protein,Serum 6.9 g/dl (6.3-8.2)
[2023-11-05] MEDS: humaLOG 100 UNITS/ML 3ML VIAL (SSI) SQ ×4 (06:32→20:04)
[2023-11-05 06:33] LABS: POC Glucose,Bedside 305 (70-110)
[2023-11-05 06:43] LABS: Reflex Lactic (2 hrs) Add Lactic Reflex
[2023-11-05] MEDS: INSULIN GLARGINE 100 UNITS/ML 3ML FLEXPEN 15 UNIT SQ (08:22)
[2023-11-05] MEDS: ACETAMINOPHEN 325MG TAB 650 MG PO (08:23)
[2023-11-05] MEDS: ENOXAPARIN 40MG/0.4ML SYRINGE 40 MG SQ (08:23)
--- NOTE | 2023-11-05 08:44 | [facility].PHAINT1 ---
Pharmacy Intervention Comments: MEDICATION RECONCILIATION COMPLETE USING MOST RECENT MD OFFICE VISIT NOTE AND EXTERNAL PHARMACY FILL HISTORY.
[2023-11-05 09:44] LABS: Lactic Acid Follow up (RFLX 2) 1.7 mmol/L (0.7-2.1)
[2023-11-05 16:53] LABS: POC Glucose,Bedside 347 (70-110)
[2023-11-05] MEDS: METFORMIN 500 MG 1 EACH PO (17:07)
--- NOTE | 2023-11-05 17:44 | PC.NURSE ---
pt has been resting most of shift. pt's blood sugar was in 210s this a.m., but shot back up to 347 this afternoon. blood sugar treated per OCT. pt has had no complaints throughout shift. pt has been satting in high 90s on room air. pt's lung sounds have been clear. bowel sounds active in all four quadrants. pt has no further complaints and is resting in bed.
[2023-11-05 20:03] LABS: POC Glucose,Bedside 246 (70-110)
[2023-11-05] MEDS: PANTOPRAZOLE 40MG TABLET 40 MG PO (20:03)
[2023-11-05] MEDS: INSULIN GLARGINE 100 UNITS/ML 3ML FLEXPEN 10 UNIT SQ (20:06)
[2023-11-06] VITALS: BP 117/71; PULSE 65; RESP 16; TEMP 36.9; O2SAT 94
[2023-11-06 04:00] VITALS: BP 108/74; PULSE 65; RESP 18; TEMP 36.6; O2SAT 95; BMI 27.8
--- NOTE | 2023-11-06 06:18 | PC.NURSE ---
Pt is alert and oriented. Used the urinal. Rested well through the night. Pt has had no complaints. Remains on room air, O2 sat >90%. Call light in reach.
[2023-11-06 06:23] LABS: POC Glucose,Bedside 120 (70-110)
[2023-11-06] MEDS: METFORMIN 500 MG 1 EACH PO (06:55)
[2023-11-06] MEDS: LEVOTHYROXINE 25MCG (0.025MG) TAB 25 MCG PO (06:55)
[2023-11-06 07:43] LABS: Basophils # 0.1 K/mm3 (0-0.2); Eosinophils # 0.3 K/mm3 (0.0-0.4); Eosinophils % 2.9 % (0.1-12.0); Hematocrit 40.5 % (42.0-52.0); Hemoglobin 13.4 g/dL (14.1-18.0); Lymphocytes # 2.9 K/mm3 (0.7-4.5); Lymphocytes % 29.1 % (10-50); Mean Corpuscular HGB Conc 33.1 g/dL (31.8-35.4); Mean Corpuscular Hemoglobin 29.5 pg (27.0-31.2); Mean Corpuscular Volume 89.1 fl (80-94); Mean Platelet Volume 7.6 fl (7.4-10.4); Monocytes # 0.6 K/mm3 (0.1-1.0); Monocytes % 6.4 % (1.7-9.3); Neutrophils # 5.9 K/mm3 (1.8-7.8); Neutrophils % 60.7 % (37.0-80.0); Platelet Count 318 K/mm3 (142-424); Red Blood Count 4.55 M/mm3 (4.60-6.20); Red Cell Distribution Width 13.9 % (11.5-17.5); White Blood Count 9.8 K/mm3 (4.8-10.8)
[2023-11-06 07:50] LABS: Alanine Aminotransferase 14 U/L (12-78); Albumin Level 3.3 g/dl (3.5-5.0); Albumin/Globulin Ratio 1.1 (1.1-1.8); Alkaline Phosphatase 114 U/L (38-126); Anion Gap 7.7 mEq/L (5-15); Aspartate Amino Transferase 24 U/L (17-59); Bilirubin,Total 0.4 mg/dl (0.2-1.3); Blood Urea Nitrogen 22 mg/dl (9-20); Calcium 8.3 mg/dl (8.4-10.2); Carbon Dioxide 26 mmol/L (22.0-30.0); Chloride 108 mmol/L (98-107); Creatinine Clearance Estimated 42 mL/min (50-200); Estimated Glomerular Filt Rate 40 ml/min (>60); GFR (African American) 48 ML/MIN (>60); Globulin 3.1 g/dL (1.3-3.2); Glucose 129 mg/dl (74-100); Potassium 3.7 mmoL/L (3.5-5.1); Sodium 138 mmol/L (136-145); Total Protein,Serum 6.4 g/dl (6.3-8.2)
[2023-11-06 08:00] VITALS: BP 121/66; PULSE 63; RESP 19; TEMP 36.8; O2SAT 96
[2023-11-06] MEDS: ENOXAPARIN 40MG/0.4ML SYRINGE 40 MG SQ (08:11)
[2023-11-06] MEDS: METFORMIN 500MG TABLET 1000 MG PO (08:11)
--- NOTE | 2023-11-06 09:47 | P.DS_ITS ---
General Admission date:: 11/05/23 Discharge date: 11/06/23 HPI HPI HPI: This is a 73-year-old male with PMHx of more than 30 years NIDDM, CKD, HTN, HLD, GERD. Gout, presented to ED with concern for hyperglycemia. Reports increased urination and thirst at home. reported to be minimally confused. Patient went to his PCP office the morning prior to admission and found to be on hypeglycemi, to high to be read at that time. Patient apparently did not want to come to ER. He takes metformin for his diabetes. A1c has been 13. Denies any recent fever or illness. Patient reports that he drinks approximately half a gallon of orange juice yesterday. Improved mentation at the time of this interview admitted for further treatment and management. Hospital Course Hospital Course Hospital Course: 73-year-old male with PMHx of more than 30 years NIDDM, CKD, HTN, HLD, GERD. Gout, presented to ED with concern for hyperglycemia. Reports increased urination and thirst at home. reported to be minimally confused. On arrival BS was greater than 700. Creatinine at baseline. Urine without evidence of infection. Acetone and pH normal. Minimally elevated lactate. 8 unit IVP given and started on IV hydration. Discussed with ER for admission. Admitted medicine for further management. Glucoses responded well to insulin regimen. Patient clinically doing better and stable for discharge home to continue treatment with close follow-up with his PCP. Problems addressed as follows: Hyperglycemia, suspected uncontrolled NIDDM. To r/o [facility]. hyponatremia Patient was admitted to medicine service for management of his hyperglycemia and uncontrolled diabetes. Initiated on sliding scale insulin with doses of long- acting insulin. Has done well with improvement in glucose. Morning glucose on day of discharge 129. Tolerating p.o. intake. Will transition to metformin at 1000 mg twice daily. Continue once daily insulin glargine 25 units nightly. Provided with pen needles. Recommend close follow-up with his PCP for further management and adjustment. Will need repeat A1c and 3 months. A1c on admission 12. Continue adequate for other chronic conditions including Amlodipine 10 and grams daily for blood pressure Omeprazole 20 Naun daily for GERD Lovastatin 10 mg daily for hypercholesterol Tobacco use disorder: Counseled on smoking cessation. Discharged with nicotine patch to promote cessation. Close follow-up with PCP in the next 1 to 2 weeks for further adjustment of diabetes regimen. Stable for discharge home. Total time spent on discharge 32 minutes in counseling, documentation, chart review, and direct care with patient. Exam Data for Last 24 hours Vital signs and Labs for Last 24 Hours: Temp Pulse Resp BP Pulse Ox O2 Del Method 98.2 F 63 19 121/66 96 Room Air 11/06/23 08:00 11/06/23 08:00 11/06/23 08:00 11/06/23 08:00 11/06/23 08:00 11/06/23 09:00 Laboratory Results - last 24 hr 11/04/23 23:56: Urine Sodium 6.0 L 11/05/23 04:40: VBG Lactic Acid 1.9 11/05/23 09:23: Lactate 1.7 11/05/23 16:45: POC Glucose 347 H* 11/05/23 19:53: POC Glucose 246 H 11/06/23 06:17: POC Glucose 120 H 11/06/23 06:38: WBC 9.8, RBC 4.55 L, Hgb 13.4 L, Hct 40.5 L, MCV 89.1, MCH 29.5, MCHC 33.1, RDW 13.9, Plt Count 318, MPV 7.6, Neut % (Auto) 60.7, Lymph % (Auto) 29.1, Iroquois % (Auto) 6.4, Eos % (Auto) 2.9, Baso % (Auto) 1.0, Neut # (Auto) 5.9, Lymph # (Auto) 2.9, [place]quois # (Auto) 0.6, Eos # (Auto) 0.3, Baso # (Auto) 0.1, Sodium 138, Potassium 3.7, Chloride 108 H, Carbon Dioxide 26, Anion Gap 7.7, BUN 22 H, Creatinine 1.70 H, Estimated Creat Clear 42, Estimated GFR 40 L, Est GFR ( Amer) 48 L, Glucose 129 H, Calcium 8.3 L, Magnesium 2.0, Total Bilirubin 0.4, AST 24, ALT 14 D, Alkaline Phosphatase 114, Total Protein 6.4, Albumin 3.3 L D, Globulin 3.1, Albumin/Globulin Ratio 1.1 I & O for Last 24 hours: Intake & Output 11/03/23 11/04/23 11/05/23 11/07/23 23:59 23:59 23:59 00:59 Intake Total 1989 1360 / 1360 Output Total 1175 / 1175 200 / 200 Balance -185 / 815 1160 / 1160 Weight 78.018 kg 78.426 kg Constitutional Constitutional: no acute distress, average body habitus, chronically ill appearing and cooperative *Routine HEENT Exam Head: Present normocephalic Eye: Present EOMI and PERRL ENT: Present mucous membranes moist *Routine Neck Exam Neck: Present supple; Absent lymphadenopathy *Routine Respiratory Exam Respiratory: Present CTA bilaterally *Routine Cardiovascular Exam Cardiovascular: Present RRR *Routine Abdominal Exam Abdominal: Present soft and normoactive bowel sounds; Absent tenderness *Routine Extremities Exam Extremities: Absent cyanosis, clubbing or edema *Routine Skin Exam Skin: Present warm; Absent rash *Routine Neurological Exam Neurological: Present alert, oriented X3 and moving all extremities; Absent altered mental status Results Data Completed and Pending Labs on day of discharge: Labs from last 24 hours 11/06/23 11/06/23 11/05/23 06:38 06:17 19:53 WBC 9.8 RBC 4.55 L Hgb 13.4 L Hct 40.5 L MCV 89.1 MCH 29.5 MCHC 33.1 RDW 13.9 Plt Count 318 MPV 7.6 Neut % (Auto) 60.7 Lymph % (Auto) 29.1 Iroquois % (Auto) 6.4 Eos % (Auto) 2.9 Baso % (Auto) 1.0 Neut # (Auto) 5.9 Lymph # (Auto) 2.9 Iroquois # (Auto) 0.6 Eos # (Auto) 0.3 Baso # (Auto) 0.1 VBG Lactic Acid Sodium 138 Potassium 3.7 Chloride 108 H Carbon Dioxide 26 Anion Gap 7.7 BUN 22 H Creatinine 1.70 H Estimated Creat Clear 42 Estimated GFR 40 L Est GFR ( Amer) 48 L Glucose 129 H POC Glucose 120 H 246 H Lactate Calcium 8.3 L Magnesium 2.0 Total Bilirubin 0.4 AST 24 ALT 14 D Alkaline Phosphatase 114 Total Protein 6.4 Albumin 3.3 L D Globulin 3.1 Albumin/Globulin Ratio 1.1 Urine Sodium 11/05/23 11/05/23 11/05/23 16:45 09:23 04:40 WBC RBC Hgb Hct MCV MCH MCHC RDW Plt Count MPV Neut % (Auto) Lymph % (Auto) Iroquois % (Auto) Eos % (Auto) Baso % (Auto) Neut # (Auto) Lymph # (Auto) Iroquois # (Auto) Eos # (Auto) Baso # (Auto) VBG Lactic Acid 1.9 Sodium Potassium Chloride Carbon Dioxide Anion Gap BUN Creatinine Estimated Creat Clear Estimated GFR Est GFR ( Amer) Glucose POC Glucose 347 H* Lactate 1.7 Calcium Magnesium Total Bilirubin AST ALT Alkaline Phosphatase Total Protein Albumin Globulin Albumin/Globulin Ratio Urine Sodium 11/04/23 23:56 WBC RBC Hgb Hct MCV MCH MCHC RDW Plt Count MPV Neut % (Auto) Lymph % (Auto) Iroquois % (Auto) Eos % (Auto) Baso % (Auto) Neut # (Auto) Lymph # (Auto) [place]roquois # (Auto) Eos # (Auto) Baso # (Auto) VBG Lactic Acid Sodium Potassium Chloride Carbon Dioxide Anion Gap BUN Creatinine Estimated Creat Clear Estimated GFR Est GFR ( Amer) Glucose POC Glucose Lactate Calcium Magnesium Total Bilirubin AST ALT Alkaline Phosphatase Total Protein Albumin Globulin Albumin/Globulin Ratio Urine Sodium 6.0 L DS: Diagnosis Discharge Diagnosis (1) Hyperglycemia: Status: Acute Code(s): R73.9 - Hyperglycemia, unspecified (2) Hyponatremia: Status: Acute Code(s): E87.1 - Hypo-osmolality and hyponatremia (3) Diabetes: Status: Acute Code(s): E11.9 - Type 2 diabetes mellitus without complications Qualifiers: Diabetes mellitus complication status: with other specified complication Diabetes mellitus intermediate accountant insulin use: without senior care use Diabetes mellitus type: type 2 Qualified Code(s): E11.69 - Type 2 diabetes mellitus with other specified complication (4) GERD (gastroesophageal reflux disease): Status: Acute Code(s): K21.9 - Gastro-esophageal reflux disease without esophagitis Qualifiers: Esophagitis presence: esophagitis presence not specified Qualified Code(s): K21.9 - Gastro-esophageal reflux disease without esophagitis (5) Hyperlipidemia: Status: Acute Code(s): E78.5 - Hyperlipidemia, unspecified Qualifiers: Hyperlipidemia type: unspecified Qualified Code(s): E78.5 - Hyperlipidemia, unspecified (6) Hypertension: Status: Acute Code(s): I10 - Essential (primary) hypertension Qualifiers: Hypertension type: unspecified Qualified Code(s): I10 - Essential (primary) hypertension (7) CKD (chronic kidney disease) stage 3, GFR 30-59 ml/min: Status: Chronic Code(s): N18.30 - Chronic kidney disease, stage 3 unspecified Qualifiers: Chronic kidney disease stage 3 subtype: stage 3b (GFR 30-44) Qualified Code(s): N18.32 - Chronic kidney disease, stage 3b (8) Bilateral leg edema: Status: Acute Code(s): R60.0 - Localized edema Meds Home Medications and Allergies Home Medications Medication Instructions Recorded Confirmed Type amlodipine 10 mg tablet 10 mg PO DAILY High Blood Pressure 11/05/23 11/05/23 History levothyroxine 25 mcg tablet 25 mcg PO DAILYDM THYROID 11/05/23 11/05/23 History lovastatin 10 mg tablet 10 mg PO DAILY Cholesterol 11/05/23 11/05/23 History omeprazole 20 mg capsule,delayed 20 mg PO DAILY Acid Reflux 11/05/23 11/05/23 H istory release triamcinolone acetonide 0.1 % 1 applic topical TID Skin Condition 11/05/23 11/05/23 History topical cream insulin glargine 100 unit/mL (3 25 unit (0.25 mL) SQ HS 30 days 11/06/23 Rx mL) subcutaneous pen (Lantus #7.5 mL Solostar U-100 Insulin) metformin 1,000 mg tablet 1,000 mg PO BIDWMEAL 30 days #60 11/06/23 Rx tabs nicotine 21 mg/24 hr daily 21 mg transdermal DAILYP PRN 11/06/23 Rx transdermal patch Nicotine Cravings 28 days #28 ea pen needle, diabetic 31 gauge x #100 ea 11/06/23 Rx 1/4 New Prescriptions to Start Prescriptions: insulin glargine [Lantus Solostar U-100 Insulin] Bin Neff metformin Bin Neff nicotine Aishwarya,Bin pen needle, diabetic Bin Neff Allergies Allergy/AdvReac Type Severity Reaction Status Date / Time No Known Allergies Allergy Verified 11/04/23 10:47 Discharge Plan Disposition Patient Disposition: Home, Self-Care Condition: Fair Follow up Plan Follow up with: Sea Metzger DO [Primary Care Provider] - Enter time for follow up (Please call and make your follow up appt. ) Prescriptions/Medication Reconciliation: New insulin glargine [Lantus Solostar U-100 Insulin] 100 unit/mL (3 mL) Insulin Pen 25 unit SQ HS 30 Days Qty: 7.5 0RF metformin 1,000 mg tablet 1,000 mg PO BIDWMEAL 30 Days Qty: 60 0RF nicotine 21 mg/24 hr Patch 24 Hour 21 mg transdermal DAILYP PRN (Reason: Nicotine Cravings) 28 Days Qty: 28 2RF (DME) pen needle, diabetic 31 gauge x 1/4 needle See Rx Instructions .Route Qty: 100 0RF Rx Instructions: As directed Continued triamcinolone acetonide 0.1 % Cream 1 applic TOPICAL TID omeprazole 20 mg Capsule,Delayed Release(Dr/Ec) 20 mg PO DAILY lovastatin 10 mg tablet 10 mg PO DAILY levothyroxine 25 mcg tablet 25 mcg PO DAILYDM amlodipine 10 mg tablet 10 mg PO DAILY Discontinued metformin 500 mg tablet 500 mg PO BIDWMEAL Problem Reconciliation Problems Reviewed?: Yes Patient Discharge Instructions ACTIVITY: Continue current activity DIET: continue same diet and diabetic diet Patient Instructions: DI for Hyperglycemia -- Adult Providers Primary Care Provider: Sea Metzger Admit Provider: Bin Neff Attending Provider: Bin Neff
[2023-11-06] MEDS: humaLOG 100 UNITS/ML 3ML VIAL (SSI) SQ (10:42)
[2023-11-06 10:51] LABS: POC Glucose,Bedside 206 (70-110)
[2023-11-06] MEDS: ACETAMINOPHEN 325MG TAB 650 MG PO (10:57)
--- NOTE | 2023-11-06 12:02 | PC.NURSE ---
PT EDUCATED ON USE OF INSULIN PEN PRIOR TO D/C. VERBALIZED UNDERSTANDING.
--- NOTE | 2023-11-07 15:49 | CARE MANAGER ---
Contacted patient's relative related to hospital discharge. She states patient is doing ok. He is weak, but they decline home health. He has already followed up with PCP. We discussed diabetic diet and medications. Denies other questions or concerns. HO Loza
== END 2023-11-06 12:02 | disposition home or self-care (01) ==
LOC: ER 11-05 00:10 → 2ND 11-05 02:41
PROVIDERS: Nurse Practitioner Family; Admitting Provider Internal Medicine Adolescent Medicine; Emergency Provider Emergency Medicine; PCP Internal Medicine; Visit Provider Internal Medicine Adolescent Medicine
DX: E87.1 Hypo-osmolality and hyponatremia; E11.65 Type 2 diabetes mellitus with hyperglycemia; K21.9 Gastro-esophageal reflux disease without esophagitis; E78.5 Hyperlipidemia, unspecified; I12.9 Hypertensive chronic kidney disease with stage 1 through stage 4 chronic kidney disease, or unspecified chronic kidney disease; N18.32 Chronic kidney disease, stage 3b; R60.0 Localized edema; Z79.899 Other long term (current) drug therapy; E11.22 Type 2 diabetes mellitus with diabetic chronic kidney disease; Z79.84 Long term (current) use of oral hypoglycemic drugs; F17.210 Nicotine dependence, cigarettes, uncomplicated
CPT/HCPCS: 36415; 80053; 81001; 82009; 82803; 82962; 83036; 83605; 83615; 83735; 83930; 84540; 85025; 99291; G0378

== ENCOUNTER 2024-02-13 18:00 | Outpatient (CLI) | payer MEDICARE, BC, SELFPAY ==
[2024-02-13 18:53] LABS: Alanine Aminotransferase 19 U/L (12-78); Albumin Level 3.9 g/dl (3.5-5.0); Albumin/Globulin Ratio 1.3 (1.1-1.8); Alkaline Phosphatase 87 U/L (38-126); Anion Gap 17.4 mEq/L (5-15); Aspartate Amino Transferase 27 U/L (17-59); Bilirubin,Total 0.5 mg/dl (0.2-1.3); Blood Urea Nitrogen 25 mg/dl (9-20); Calcium 8.9 mg/dl (8.4-10.2); Carbon Dioxide 22 mmol/L (22.0-30.0); Chloride 109 mmol/L (98-107); Estimated Glomerular Filt Rate 37 ml/min (>60); GFR (African American) 45 ML/MIN (>60); Glucose 79 mg/dl (74-100); Potassium 4.4 mmoL/L (3.5-5.1); Sodium 144 mmol/L (136-145); Total Protein,Serum 6.9 g/dl (6.3-8.2)
[2024-02-13 19:10] LABS: Free Thyroxine Index 2.2 ug/dL (5.93-13.13); T4 (Thyroxine) 6.8 ug/dl (5.53-11.0); Triiodothryronine (T3) Uptake 33 % (23.5-40.5)
[2024-02-13 19:24] LABS: Thyroid Stimulating Hormone 4.82 uIU/mL (0.465-4.68)
[2024-02-13 20:03] LABS: Hemoglobin A1C 6.2 % (4.0-6.0)
== END 2024-02-13 23:59 | disposition home or self-care (01) ==
LOC: LAB.DROPOF 02-14 08:15
PROVIDERS: Visit Provider Family Medicine
DX: R73.9 Hyperglycemia, unspecified (principal); E03.9 Hypothyroidism, unspecified
CPT/HCPCS: 80053; 83036; 84436; 84443; 84479

== ENCOUNTER 2024-05-09 09:40 | Outpatient (CLI) | payer MEDICARE, BC, SELFPAY ==
[2024-05-09 18:25] LABS: Hemoglobin A1C 5.8 % (4.0-6.0)
[2024-05-09 19:01] LABS: Alanine Aminotransferase 22 U/L (12-78); Albumin Level 4.1 g/dl (3.5-5.0); Albumin/Globulin Ratio 1.2 (1.1-1.8); Alkaline Phosphatase 96 U/L (38-126); Anion Gap 15.5 mEq/L (5-15); Aspartate Amino Transferase 28 U/L (17-59); Bilirubin,Total 0.5 mg/dl (0.2-1.3); Blood Urea Nitrogen 33 mg/dl (9-20); Calcium 9.2 mg/dl (8.4-10.2); Carbon Dioxide 21 mmol/L (22.0-30.0); Chloride 111 mmol/L (98-107); Estimated Glomerular Filt Rate 42 ml/min (>60); GFR (African American) 51 ML/MIN (>60); Globulin 3.5 g/dL (1.3-3.2); Glucose 74 mg/dl (74-100); Potassium 4.5 mmoL/L (3.5-5.1); Sodium 143 mmol/L (136-145); Total Protein,Serum 7.6 g/dl (6.3-8.2)
[2024-05-09 19:18] LABS: Free Thyroxine Index 2.6 ug/dL (5.93-13.13); Triiodothryronine (T3) Uptake 33 % (23.5-40.5)
[2024-05-09 19:31] LABS: Thyroid Stimulating Hormone 3.05 uIU/mL (0.465-4.68)
== END 2024-05-09 23:59 | disposition home or self-care (01) ==
LOC: LAB.DROPOF 05-10 09:58
PROVIDERS: PCP Family Medicine; Visit Provider Family Medicine
DX: E03.9 Hypothyroidism, unspecified (principal); Z00.00 Encounter for general adult medical examination without abnormal findings; E11.9 Type 2 diabetes mellitus without complications
CPT/HCPCS: 80053; 83036; 84436; 84443; 84479

== ENCOUNTER 2024-12-07 10:12 | Outpatient (CLI) | payer MEDICARE, BC, SELFPAY ==
[2024-12-07 18:09] LABS: Basophils # 0.1 K/mm3 (0-0.2); Basophils % 1.6 % (0.1-2.0); Eosinophils # 0.5 K/mm3 (0.0-0.4); Eosinophils % 6.7 % (0.1-12.0); Hematocrit 41.8 % (42.0-52.0); Hemoglobin 13.2 g/dL (14.1-18.0); Lymphocytes # 2.2 K/mm3 (0.7-4.5); Lymphocytes % 27.6 % (10-50); Mean Corpuscular HGB Conc 31.6 g/dL (31.8-35.4); Mean Corpuscular Hemoglobin 28.2 pg (27.0-31.2); Mean Corpuscular Volume 89.3 fl (80-94); Mean Platelet Volume 9.7 fl (7.4-10.4); Monocytes # 0.8 K/mm3 (0.1-1.0); Monocytes % 10.2 % (1.7-9.3); Neutrophils # 4.3 K/mm3 (1.8-7.8); Neutrophils % 53.8 % (37.0-80.0); Nucleated Red Blood Cells # 0 10^3/uL; Nucleated Red Blood Cells % 0 %; Platelet Count 332 K/mm3 (142-424); Red Blood Count 4.68 M/mm3 (4.60-6.20); Red Cell Distribution Width-SD 49.4 fL
[2024-12-07 18:32] LABS: Hemoglobin A1C 5.9 % (4.0-6.0)
[2024-12-07 18:57] LABS: Alanine Aminotransferase 16 U/L (12-78); Albumin Level 4.3 g/dl (3.5-5.0); Albumin/Globulin Ratio 1.2 (1.1-1.8); Alkaline Phosphatase 118 U/L (38-126); Anion Gap 20.4 mEq/L (5-15); Aspartate Amino Transferase 28 U/L (17-59); Bilirubin,Total 0.5 mg/dl (0.2-1.3); Blood Urea Nitrogen 28 mg/dl (9-20); Carbon Dioxide 20 mmol/L (22.0-30.0); Chloride 108 mmol/L (98-107); Chol/HDL Ratio 2.9 (1-3.5); Cholesterol 150 mg/dl (140-200); Estimated Glomerular Filt Rate 31 ml/min (>60); GFR (African American) 37 ML/MIN (>60); Globulin 3.6 g/dL (1.3-3.2); Glucose 84 mg/dl (74-100); HDL Cholesterol 52 mg/dl (40-60); Potassium 4.4 mmoL/L (3.5-5.1); Sodium 144 mmol/L (136-145); Total Protein,Serum 7.9 g/dl (6.3-8.2); Triglycerides 96 mg/dl (30-150); VLDL Cholesterol 19 mg/dL (0-40)
[2024-12-07 19:08] LABS: Direct LDL Cholesterol 68.38 mg/dL (100-129)
[2024-12-07 19:28] LABS: Thyroid Stimulating Hormone 3.48 uIU/mL (0.465-4.68)
[2024-12-07 19:46] LABS: Microalbumin/Creatinine Ratio 163.1
[2024-12-07 19:47] LABS: Creatinine,Urine Random 70 mg/dL (Not Estab.)
== END 2024-12-07 23:59 | disposition home or self-care (01) ==
LOC: LAB.DROPOF 12-10 10:13
PROVIDERS: PCP Family Medicine; Visit Provider Family Medicine
DX: I12.9 Hypertensive chronic kidney disease with stage 1 through stage 4 chronic kidney disease, or unspecified chronic kidney disease (principal); N18.32 Chronic kidney disease, stage 3b; E11.69 Type 2 diabetes mellitus with other specified complication; E78.5 Hyperlipidemia, unspecified; E03.9 Hypothyroidism, unspecified; Z79.4 Long term (current) use of insulin; Z79.84 Long term (current) use of oral hypoglycemic drugs
CPT/HCPCS: 80053; 80061; 82043; 82570; 83036; 84443; 85025

== ENCOUNTER 2025-01-11 14:47 | Outpatient (CLI) | payer MEDICARE, BC, SELFPAY ==
[2025-01-11 19:13] LABS: Alanine Aminotransferase 14 U/L (12-78); Albumin Level 3.9 g/dl (3.5-5.0); Albumin/Globulin Ratio 1.4 (1.1-1.8); Alkaline Phosphatase 93 U/L (38-126); Anion Gap 14.6 mEq/L (5-15); Aspartate Amino Transferase 23 U/L (17-59); Bilirubin,Total 0.4 mg/dl (0.2-1.3); Blood Urea Nitrogen 30 mg/dl (9-20); Calcium 8.3 mg/dl (8.4-10.2); Carbon Dioxide 19 mmol/L (22.0-30.0); Chloride 111 mmol/L (98-107); Estimated Glomerular Filt Rate 29 ml/min (>60); GFR (African American) 35 ML/MIN (>60); Globulin 2.7 g/dL (1.3-3.2); Glucose 83 mg/dl (74-100); Potassium 4.6 mmoL/L (3.5-5.1); Sodium 140 mmol/L (136-145); Total Protein,Serum 6.6 g/dl (6.3-8.2)
== END 2025-01-11 23:59 | disposition home or self-care (01) ==
LOC: LAB.DROPOF 01-14 14:48
PROVIDERS: PCP Family Medicine; Visit Provider Family Medicine
DX: E11.69 Type 2 diabetes mellitus with other specified complication (principal); Z79.4 Long term (current) use of insulin
CPT/HCPCS: 80053

== ENCOUNTER 2025-04-10 09:31 | Outpatient (CLI) | payer MEDICARE, BC, SELFPAY ==
--- NOTE | 2025-04-10 09:32 | XR_ITS ---
FINAL REPORT CLINICAL HISTORY: pain when bending both legs FINDINGS: LEFT KNEE 3 views of the left knee were obtained. There is no acute fracture or dislocation. There is advanced tricompartmental degenerative change, most pronounced in the patellofemoral joint. Small joint effusion is seen. There are possible joint bodies posteriorly. Visualized joint spaces are normally aligned. Soft tissues are unremarkable. IMPRESSION: Degenerative changes without acute bony abnormality. Reviewed, Interpreted and Dictated by Jean Gill MD Transcribed by Britt Taveras Authenticated and [facility]
--- NOTE | 2025-04-10 09:32 | XR_ITS ---
FINAL REPORT CLINICAL HISTORY: knee pain, pain when bending both legs FINDINGS: RIGHT KNEE 3 views of the right knee were obtained. There is no acute fracture or dislocation. There is advanced tricompartmental degenerative change, most pronounced in the patellofemoral joint. Small joint effusion is seen. Visualized joint spaces are normally aligned. Soft tissues are unremarkable. IMPRESSION: Degenerative changes without acute bony abnormality. Reviewed, Interpreted and Dictated by Jean Gill MD Transcribed by Britt Taveras Authenticated and [facility]
--- OUTSIDE RECORDS SUMMARY | 2025-04-10 09:34 | XMS_ITS | Clinical Summary ---
Author Organization Healthcare Address [address] [id number] Care Team Providers Care Tank Systems Maintainer Name Role Phone Paul Light MD Primary Care Provider [phone] Allergies No known active allergies Medications amLODIPine (Norvasc) 10 MG tablet TAKE 1 TABLET DAILY. 05/22/2019 Active Aspirin Buf,CaCarb-MgCa rb-MgO, 81 MG tablet 05/22/2019 Active ergocalciferol (Vitamin D-2) 1.25 MG (72380 UT) capsule TAKE 1 CAPSULE WEEKLY. 05/22/2019 Active levothyroxine (Synthroid, Levoxyl) 25 MCG tablet 05/22/2019 Active lovastatin (Mevacor) 10 MG tablet 05/22/2019 Active pantoprazole (Protonix) 40 MG EC tablet TAKE 1 TABLET DAILY. 05/22/2019 Active fish oil ([place]-3) 500 MG capsule Take 1 capsule (500 mg) by mouth 1 (one) time each day. Active Garlic 10 MG capsule Take by mouth. Active Active Problems Problem Noted Date Diagnosed Date Stage 3 chronic kidney disease 05/09/2022 Chronic kidney disease-mineral and bone disorder 05/09/2022 Proteinuria 05/09/2022 Diabetes mellitus, type 2 05/22/2019 Hypertension 05/22/2019 Resolved Problems Problem Noted Date Diagnosed Date Resolved Date CKD (chronic kidney disease) stage 4, GFR 15-29 ml/min 05/16/2019 05/09/2022 Encounters Date Type Department Care Team Description 02/27/2025 Orders Only [facility] [address] [place] [phone] Elif Mendez Stage 3 chronic kidney disease, unspecified whether stage 3a or 3b CKD (CMS/HCC) (Primary Dx); Vitamin D insufficiency from Last 3 Months Immunizations Immunization Administration Dates Next Due Influenza, Unspecified 08/03/2021 Influenza, high-dose, quadrivalent 06/01/2018, Influenza, seasonal, injectable, preservative fr ee 05/11/2020 Influenza, trivalent, adjuvanted 05/21/2019,04/30 Pneumococcal Conjugate PCV 13 02/03/2017 TD (adult), 2 Lf tetanus tox oid, preservative free, adsorbed 10/29/1996 Family History Medical History Relation Name Comments Heart disease Brother Hip fracture Father Cancer Mother Relation Name Status Comments Brother Father Mother Social History Tobacco Use Types Packs/Day Years Used Date Smoking Tobacco: Former Passive Smoke Exposure: Past Smokeless Tobacco: Former Tobacco Cessation:Counseling Given: Not Answered Alcohol Use Standard Drinks/Week Comments Never 0 (1 standard drink = 0.6 oz pur e alcohol) Sex and Gender Information Value Date Recorded Sex Assigned at Not on file Legal Sex Male 7:27 PM EDT Gender Identity Not on file Sexual Orientation Not on file Last Filed Vital Signs Vital Sign Reading Time Taken Comments Blood Pressure 133/67 06/02/2023 2:02 PM EDT Pulse 77 06/02/2023 2:02 PM EDT Temperature - - Respiratory Rate 16 06/02/2023 2:02 PM EDT Oxygen Saturation 99% 06/02/2023 2:02 PM EDT Inhaled Oxygen Concentration - - Weight 76.1 kg (167 lb 12.8 oz) 06/02/2023 2:02 PM EDT Height 170.2 cm (5' 7 ) 04/29/2022 2:26 PM EDT Body Mass Index 26.28 04/29/2022 2:26 PM EDT Plan of Treatment Upcoming Encounters Date Type Department Care Team (Late st Contact Info) Description 06/14/2025 1:20 PM EDT Office Visit [facility] [address] [place] [phone] Ethan Elias MD [address] [place] [phone] Health Maintenance Due Date Last Done Comments [facility]-Depression Screening 1949 [facility]-Diabetes: Hemoglobin A1C 1949 [facility]-Hepatitis C Screening 1949 [facility]-Medicare Annual Wellness (AWV) 1949 [facility]-Infant/Child/Adol SDOH Screenings 1949 Diabetes: Dental Exam 1959 [facility]- SDOH Screenings 1967 [facility]-Adult SDOH Screenings 1967 CT Colonography 1994 Colonoscopy 1994 FIT-DNA 1994 FIT 1994 FOBT 1994 Sigmoidoscopy 1994 [facility]-Colorectal Cancer Screening 1994 [facility]-Zoster Vaccines (1 of 2) 1999 [facility]-Pneumococcal Vaccine: 50+ Years (2 of 2 - PPSV23) 03/31/2017 02/03/2017 [id number] Vaccine (2 - Joseline risk series) 05/06/2021 04/08/2021 [facility]-DTaP,Tdap,and Td Vaccines (1 - Tdap) 03/19/2022 03/18/2022, 10/29/1996 [facility]-RSV Vaccine: 60+ Years or (1 - 1-dose 75+ series) 2024 [facility]-Influenza Vaccine (#1) 04/29/202507/31, 06/27/2023, 04/19/2022, Additional history exists [facility]-Obesity Intervention Completed 11/08/2022, 08/2021 HPV Vaccines Aged Out No longer eligi ble based on patient's age to complete this topic [facility]-HIB Vaccines Aged Out No longer e ligible based on patient's age to complete this topic [facility]-Hepatitis A Vaccines Aged Out No longer eligible based on patient's age to complete this topic [facility]-IPV Vaccines Aged Out No longer e ligible based on patient's age to complete this topic [facility]-Rotavirus Vaccines Aged Out No lo nger eligible based on patient's age to complete this topic Insurance MEDICARE Care Teams Tank Systems Maintainer Relationship Specialty Start Date End Date Paul Light MD [address] [place] [address] PCP - General 01/09/21
--- OUTSIDE RECORDS SUMMARY | 2025-04-10 09:34 | XMS_ITS | Encounter Summary ---
Author Organization Healthcare Address [address] [place] [address] Care Team Providers Care Felt Hat Pouncing Operator Hand Name Role Phone Paul Light MD Primary Care Provider [phone] Encounter Details Date Type Department Care Team (Late Contact Info) Description 02/27/2025 Orders Only [facility] [address] [place] [phone] Elif Mendez Stage 3 chronic kidney disease, unspecified whether stage 3a or 3b CKD (CMS/HCC) (Primary Dx); Vitamin D insufficiency Social History Tobacco Use Types Packs/Day Years Used Date Smoking Tobacco: Former Passive Smoke Exposure: Past Smokeless Tobacco: Former Alcohol Use Standard Drinks/Week Comments Never 0 (1 standard drink = 0.6 oz pur e alcohol) Sex and Gender Information Value Date Recorded Sex Assigned at Not on file Legal Sex Male 7:27 PM EDT Gender Identity Not on file Sexual Orientation Not on file documented as of this encounter Plan of Treatment Upcoming Encounters Date Type Department Care Team (Late Contact Info) Description 06/14/2025 1:20 PM EDT Office Visit [facility] [address] [place] [phone] Ethan Elias MD [address] [place] [phone] Scheduled Orders Name Type Priority Associated Diagnoses Orde r Schedule Renal Function Panel, Plasma Lab Routine Stage 3 chronic kidney disease, unspecified whether stage 3a or 3b CKD (CMS/HCC) Expected: 02/27/2025 (Approximate), Expires: 08/30/2026 CBC and Differential Lab Routine Stage 3 chronic kidney disease, unspecified whether stage 3a or 3b CKD ([facility]) Expected: 02/27/2025 (Approximate), Expires: 08/30/2026 Creatinine, Random, Urine Lab Routine Stage 3 chronic kidney disease, unspecified whether stage 3a or 3b CKD ([facility]/HCC) Expected: 02/27/2025 (Approximate), Expires: 08/30/2026 Protein, Random, Urine with Creatinine Lab Routine Stage 3 chronic kidney disease, unspecified whether stage 3a or 3b CKD ([facility]/HCC) Expected: 02/27/2025 (Approximate), Expires: 08/30/2026 Urinalysis with reflex microscopic (Culture NOT Included) Lab Routine Stage 3 chronic kidney disease, unspecified whether stage 3a or 3b CKD ([facility]) Expected: 02/27/2025 (Approximate), Expires: 08/30/2026 PTH Intact Total Lab Routine Stage 3 chronic kidney disease, unspecified whether stage 3a or 3b CKD ([facility]) Vitamin D insufficiency Expected: 02/27/2025 (Approximate), Expires: 08/30/2026 Vitamin D 25 Hydroxy Lab Routine Stage 3 chronic kidney disease, unspecified whether stage 3a or 3b CKD ([facility]) Vitamin D insufficiency Expected: 02/27/2025 (Approximate), Expires: 08/30/2026 documented as of this encounter Visit Diagnoses Diagnosis Stage 3 chronic kidney disease, unspecified whether stage 3a or 3b CKD ([facility])- Primary Vitamin D insufficiency documented in this encounter Additional Health Concerns Assessment Noted Time A fall risk assessment has been complete d for the patient 06/02/2023 2:08 PM EDT A Body Mass Index follow-up plan has been documented for the patient 11/08/2022 3:38 PM EDT documented as of this encounter Care Teams Felt Hat Pouncing Operator Hand Relationship Specialty Start Date End Date Paul Light MD [address] [place] [address] PCP - General 01/09/21 documented as of this encounter
[2025-04-10 16:45] LABS: Prostate Specific Ag, Diagnost 6.78 ng/ml (0.0-4.0)
== END 2025-04-10 23:59 | disposition home or self-care (01) ==
LOC: RAD 09:32
PROVIDERS: Visit Provider Family Medicine
DX: M17.0 Bilateral primary osteoarthritis of knee (principal); M25.462 Effusion, left knee; M25.461 Effusion, right knee; N40.0 Benign prostatic hyperplasia without lower urinary tract symptoms
CPT/HCPCS: 73562; 84153

== ENCOUNTER 2025-06-07 08:39 | Outpatient (CLI) | payer MEDICARE, BC, SELFPAY ==
--- OUTSIDE RECORDS SUMMARY | 2025-06-07 08:46 | XMS_ITS | Clinical Summary ---
Author Organization Healthcare Address [address] [place] [address] Care Team Providers Care Chief Strategy Officer Name Role Phone Paul Light MD Primary Care Provider [phone] Allergies No known active allergies Medications amLODIPine (Norvasc) 10 MG tablet TAKE 1 TABLET DAILY. 05/22/2019 Active Aspirin Buf,CaCarb-MgCa rb-MgO, 81 MG tablet 05/22/2019 Active ergocalciferol (Vitamin D-2) 1.25 MG (09755 UT) capsule TAKE 1 CAPSULE WEEKLY. 05/22/2019 Active levothyroxine (Synthroid, Levoxyl) 25 MCG tablet 05/22/2019 Active lovastatin (Mevacor) 10 MG tablet 05/22/2019 Active pantoprazole (Protonix) 40 MG EC tablet TAKE 1 TABLET DAILY. 05/22/2019 Active fish oil ([place]-3) 500 MG capsule Take 1 capsule (500 [...] stage 4, GFR 15-29 ml/min 05/16/2019 05/09/2022 Immunizations Immunization Administration Dates Next Due Influenza, [...] Description 06/14/2025 1:20 PM EDT Office Visit [facility] [address] [place] [phone] Ethan Elias MD [address] [place] [phone] Health Maintenance Due Date Last Done Comments [facility]-Depression Screening 1949 [facility]-Diabetes: Hemoglobin A1C 1949 [facility]-Hepatitis C Screening 1949 [facility]Medicare Annual Wellness (AWV) 1949 [facility]-Infant/Child/Adol SDOH Screenings 1949 Diabetes: Dental Exam 1959 [facility]- SDOH Screenings 1967 [facility]-Adult SDOH Screenings 1967 CT Colonography 1994 Colonoscopy 1994 FIT-DNA 1994 FIT 1994 FOBT 1994 Sigmoidoscopy 1994 [facility]-Colorectal Cancer Screening 1994 [facility]-Zoster Vaccines (1 of 2) 1999 [facility]-Pneumococcal Vaccine: 50+ Years (2 of 2 - PPSV23, PCV20, or PCV21) 03/31/2017 02/03/2017 [id number] Vaccine (2 - Joseline risk series) 05/06/2021 04/08/2021 [facility]-DTaP,Tdap,and Td Vaccines (1 - Tdap) 03/19/2022 03/18/2022, 10/29/1996 [facility]-RSV Vaccine: 60+ Years or (1 - 1-dose 75+ series) 2024 [facility]-Influenza Vaccine (#1) 04/29/202507/31, 06/27/2023, 04/19/2022, Additional history exists [facility]-Obesity Intervention Completed 11/08/2022, 090 08/2021 HPV Vaccines Aged Out No longer [...] complete this topic Insurance MEDICARE Care Teams Chief Strategy Officer Relationship Specialty Start Date End Date Paul Light MD [address] [place] [address] PCP - General 01/09/21
[2025-06-07 09:03] LABS: Microscopic, Urine URINE MICROSCOPIC (MICROSCOPIC)
[2025-06-07 09:16] LABS: Hematocrit 43.7 % (42.0-52.0); Hemoglobin 14.4 g/dL (14.1-18.0); Immature Granulocytes % 0.2 %; Mean Corpuscular HGB Conc 33.0 g/dL (31.8-35.4); Mean Corpuscular Hemoglobin 28.3 pg (27.0-31.2); Mean Corpuscular Volume 86.0 fl (80-94); Nucleated Red Blood Cells % 0 %; Platelet Count 293 K/mm3 (142-424); Red Blood Count 5.08 M/mm3 (4.60-6.20); Red Cell Distribution Width-SD 48.2 fL; White Blood Count 8.3 K/mm3 (4.8-10.8)
[2025-06-07 09:28] LABS: Bilirubin,Urine Negative (Negative); Color,Urine YELLOW (Yellow); Glucose,Urine (UA) 1+ (Negative); Ketones,Urine Negative (Negative); Leukocyte Esterase,Urine Negative (Negative); PH,Urine 6.0 (5.0-8.5); Protein,Urine TRACE (Negative); Specific Gravity, Urine 1.020 (1.005-1.030); Urobilinogen,Urine 0.2 EU/dl (0.2)
[2025-06-07 11:11] LABS: Albumin Level 3.8 g/dl (3.5-5.0); Anion Gap 16.4 mEq/L (5-15); Blood Urea Nitrogen 36 mg/dl (9-20); Calcium 8.8 mg/dl (8.4-10.2); Carbon Dioxide 22 mmol/L (22.0-30.0); Chloride 106 mmol/L (98-107); Creatinine,Serum 2.10 mg/dl (0.66-1.25); Estimated Glomerular Filt Rate 31 ml/min (>60); GFR (African American) 37 ML/MIN (>60); Glucose 84 mg/dl (74-100); Phosphorous 3.8 mg/dl (2.5-4.5); Potassium 4.4 mmoL/L (3.5-5.1); Sodium 140 mmol/L (136-145)
[2025-06-07 11:25] LABS: 25-OH Vitamin D, Total 39.7 ng/mL (30-100)
== END 2025-06-07 23:59 | disposition home or self-care (01) ==
LOC: LAB 08:42
PROVIDERS: PCP Family Medicine; Visit Provider Student in an Organized Health Care Education/Training Program
DX: N18.30 Chronic kidney disease, stage 3 unspecified (principal); E55.9 Vitamin D deficiency, unspecified
CPT/HCPCS: 36415; 80069; 81001; 82306; 82570; 83970; 84156; 85025